=== PATIENT | female | born 1940 | race Caucasian/White ===

== ENCOUNTER 2020-05-09 14:55 | Inpatient (IN) | payer OTHER, BC ==
[~2020-05-09] VITALS: Ht 160 cm; Wt 43.3 kg
[2020-05-09] MEDS ORDERED: NORVASC5 MG PO (18:08)
[2020-05-09] MEDS ORDERED: CALCIUM500 MG PO (19:02)
[2020-05-09] MEDS ORDERED: OCCUVITE PO (19:02)
[2020-05-09] MEDS ORDERED: FAMOTIDINE 20 M20 MG PO (19:03)
[2020-05-09] MEDS ORDERED: DERMACINRX5000 UNI1 PO (19:03)
[2020-05-09] MEDS ORDERED: LIBRIUM PO (19:05)
[2020-05-09] MEDS ORDERED: METAMUCIL FIBE3.4 GM PO (19:05)
[2020-05-09] MEDS ORDERED: LYSINE500 MG PO (19:07)
[2020-05-10 07:20] VITALS: BP 134/67
[2020-05-10] MEDS ORDERED: AZELASTINE205.5 MCG/ NARES (13:14)
[2020-05-10] MEDS ORDERED: ESTROGEL50 GM (13:16)
[2020-05-10] MEDS ORDERED: SINUS RINSE RE1 EACH NS (13:17)
[2020-05-10] MEDS ORDERED: EYE DROP TEARS15 ML (13:25)
[2020-05-10] MEDS ORDERED: HYDROCORTISONE30 G9 RECTAL (13:27)
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
[2020-05-10 20:29] VITALS: BP 121/50
--- NOTE | 2020-05-11 05:16 | NUR ---
Assumed care of pt @ 1900. Pt calm et cooperative this shift. Took medications whole without difficulty. Ambulates the halls ad mili with steady gait. VSWNL. Health assessment with no abnormalities noted this shift. Denies SI/HI/AVH at present time. Socialized with peers in dayroom until HS. Pt repeatedly asked several staff members the same question regarding whether she needed to keep her current clothes on et if she would get new ones in the morning. Currently resting in bed with eyes closed. Will continue to monitor per unit protocol.
[2020-05-11 08:22] VITALS: BP 110/70
--- NOTE | 2020-05-11 17:13 | NUR ---
DID REPORT SI TO MD DURING AM ROUNDS BUT DURING 1;1 WITH THIS RADIATION PROTECTION TECHNICIAN STATES HAS SI WITH NO ACTIVE PLAN OR INTENT AND DOES STATE SHE WISHES SHE WOULD NOT WAKE UP BU WHEN ASKED IF SHE WOULD ACT ON THAT WHILE IN HOSPITAL STATES "THERE IS NO WAY TO DO IT HERE"WHEN APPROACHED A FEMALE PEER SITINF BY MARTA AND OFFERED PRILOSEC FOR STOMACH MARTA INSISTS THAT SHE HAD NOT RECEIVED HER AM DOSE ALTHOUGH IT HAD BEEN GIVEN A FEW MINUTES EARLIER. RATES ANXIETY 8/10 ON 1-10 SCALE. RATES DEPRESSION 5/10. ROOM CHECKED FOR CONTRABAND THIS SHIFT AND UTENSIL COUNT AFTER MEALS IN ADDITION TO MOUTH CHECK X 2 WITH MED PASS TO MONITOR FOR POTENTIAL STOCKPILING OF MEDS. WILL CONTINUE WITH Q 12 MINUTE CHECKS-ROOM ACROSS FROM NURSING STATION FOR CLOSER OBSERVATION.
[2020-05-11 19:29] VITALS: BP 119/67
--- NOTE | 2020-05-12 05:33 | NUR ---
Assumed care of pt @ 1900. Pt calm et cooperative this shift. Took medications whole without difficulty. Ambulates the halls with assistance of walker with steady gait. VSWNL. Health assessment with no abnormalities noted at present time. Denies HI/AVH at present time. Pt expressed a wish to but no current plan. Pt ambulating the halls with peer et discussing how she no longer wants to live. When asked her reasoning, pt states that she has nowhere to go when she leaves here et that she has made many bad choices in her life. Pt continues to present as very confused et asks the same questions many times. Pt expressed surprise when told that she has only been here for a couple of days. Socialized with peers in dayroom until HS. Currently resting in bed with eyes closed. Will continue to closely monitor per unit protocol.
[2020-05-12 08:09] VITALS: BP 103/70
[2020-05-12 08:41] VITALS: BP 103/78
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
[2020-05-12 11:57] LABS: CALCIUM 9.7 mg/dL (8.5-10.1); CREATININE 0.8 mg/dL (0.6-1.0); POTASSIUM 4.2 mmol/L (3.5-5.1)
[2020-05-12 12:05] LABS: ALBUMIN 3.3 g/dL (3.4-5.0); MAGNESIUM 2.2 mg/dL (1.8-2.4); TOTAL BILIRUBIN 0.4 mg/dL (0.2-1.0); TOTAL PROTEIN 6.7 g/dL (6.4-8.2)
--- NOTE | 2020-05-12 12:07 | NUR ---
PT SITTING IN DAYROOM AFTER MEETING WITH IMAGERY ANALYST VISITING WITH A FEMALE PEER-APPROACHED BY THIS RN TO PHOTOGRAPH LACERATIONS ON ARMS AND COMPLETE ASSESSMENT AT APPROX 1115 -RESPONDS TO QUESTIONS ASKED APPROPRIATLY-DENIES C/O PAIN/DISCOMFORT-APPROX 5 MINUTES LATER REPORTED BY DIRECTOR DAY CARE CENTER TO BE UNRESPONSIVE-UPON ASSESSMENT IS NOTED TO HAVE PULSE AND SHALLOW RESPIRATIONS,COLOR IS PALE-RESPONDS TO PAINFUL STIMULI-NO TO VERBAL STIMULI-EYES UNFOCUSED. LOWERED TO FLOOR AND DID OPEN EYES AND GRIMACE TO STERNAL RUB-RAPID RESPONSE CALLED. VS OBTAINED AND BLOOD SUGAR COMPLETED IS NOTED TO BE MILDLY DIAPHORETIC. BS 125-BP 125/93-PULSE 53. 02 SAT 93 PERCENT ON RA-O2 APPLIED VIA NC AT 2 LITERS AND SATS INCREASED TO 97 PERCENT. EKG SHOWS NSR-LABS DRAWN VIA RIGHT ANTICUBITALAND IV STARTED IN LEFT FOREARM. PT IS OPENING EYES TO VERBAL COMMANDS AT APPROX 1135-VS 127/60-P-58 R-12 AND O2 SAT 98 PERCENT AT 1140-LOADED ON BED AND TAKEN TO CT PER STAT ORDER-BROTHER CARLOS SORIANO CONTACTED AND INFORMED OF ABOVE-Eric SHARMA CONTACTED AND INFORMED OF ABOVE-REQUESTED DC TO GO TO CCU AFTER CT SCAN FOR FURTHER EVALUATION PER ORDER DR. DAVIDSON.
[2020-05-12 12:13] LABS: HEMATOCRIT 38.5 % (37.0-47.0); HEMOGLOBIN 12.7 gm/dL (12.0-15.0); MCH 31.4 pg (26.0-34.0); MCHC 32.9 g/dL (28.0-37.0); MCV 95.5 fL (80.0-100.0); RBC 4.03 mil/uL (4.20-5.00); RDW 13.1 % (10.5-14.5); WBC 5.9 thou/uL (4.0-11.0)
[2020-05-12 12:27] LABS: APTT 24.5 Seconds (24.5-32.8); PROTIME 9.7 Seconds (9.3-11.4)
== END 2020-05-12 12:00 | disposition home or self-care (01) | DRG 885 ==
LOC: SBH → EROBS 05-10 05:10 → SBH 05-10 07:35
PROVIDERS: Internal Medicine; Psychiatry & Neurology Neuromuscular Medicine; ADMIT Psychiatry & Neurology Psychiatry; ATTEND Psychiatry & Neurology Psychiatry
DX: F31.9 Bipolar disorder, unspecified (principal); E43 Unspecified severe protein-calorie malnutrition; R45.851 Suicidal ideations; Z68.1 Body mass index [BMI] 19.9 or less, adult; I10 Essential (primary) hypertension; Z77.22 Contact with and (suspected) exposure to environmental tobacco smoke (acute) (chronic); F03.90 Unspecified dementia, unspecified severity, without behavioral disturbance, psychotic disturbance, mood disturbance, and anxiety; M19.90 Unspecified osteoarthritis, unspecified site; G89.29 Other chronic pain; E11.9 Type 2 diabetes mellitus without complications; Z88.6 Allergy status to analgesic agent; Z88.1 Allergy status to other antibiotic agents; Z88.8 Allergy status to other drugs, medicaments and biological substances; Z28.21 Immunization not carried out because of patient refusal
CPT/HCPCS: 10880

== ENCOUNTER 2020-05-09 17:35 | Emergency (ER) | payer OTHER, BC ==
[~2020-05-09] VITALS: Ht 160 cm; Wt 45.4 kg
[2020-05-09] MEDS ORDERED: NORVASC5 MG PO (18:08)
[2020-05-09 18:35] LABS: AMP/METHAMP Negative (Negative); BARBITURATES Negative (Negative); BENZODIAZEPINES Negative (Negative); COCAINE Negative (Negative); METHADONE Negative (Negative); OPIATES Negative (Negative); PCP Negative (Negative)
[2020-05-09 18:42] LABS: ABSOLUTE NEUTROPHILS 5.4 thou/uL (1.4-8.2); BASOPHILS 0.5 % (0.0-2.0); EOSINOPHILS 0.4 % (0.0-3.0); HEMATOCRIT 42.9 % (37.0-47.0); HEMOGLOBIN 13.8 gm/dL (12.0-15.0); LYMPHOCYTES 15.1 % (24.0-44.0); MCH 30.9 pg (26.0-34.0); MCHC 32.2 g/dL (28.0-37.0); MCV 95.8 fL (80.0-100.0); MONOCYTES 6.6 % (1.0-8.0); PLATELET COUNT 255 thou/uL (150-400); POLYS 77.4 % (36.0-66.0); RBC 4.47 mil/uL (4.20-5.00); RDW 13.3 % (10.5-14.5)
[2020-05-09] MEDS ORDERED: OCCUVITE PO (19:02)
[2020-05-09] MEDS ORDERED: CALCIUM500 MG PO (19:02)
[2020-05-09] MEDS ORDERED: DERMACINRX5000 UNI1 PO (19:03)
[2020-05-09] MEDS ORDERED: FAMOTIDINE 20 M20 MG PO (19:03)
[2020-05-09] MEDS ORDERED: METAMUCIL FIBE3.4 GM PO (19:05)
[2020-05-09] MEDS ORDERED: LIBRIUM PO (19:05)
[2020-05-09] MEDS ORDERED: LYSINE500 MG PO (19:07)
[2020-05-09 20:24] LABS: ANION GAP 11 mmol/L (7-16); BUN 15 mg/dL (7-18); CALCIUM 9.6 mg/dL (8.5-10.1); CHLORIDE 102 mmol/L (98-107); CO2 29 mmol/L (21-32); CREATININE 0.9 mg/dL (0.6-1.0); GLUCOSE 111 mg/dL (74-106); POTASSIUM 4.3 mmol/L (3.5-5.1); SODIUM 142 mmol/L (136-145)
[2020-05-09 20:30] LABS: ALBUMIN 3.8 g/dL (3.4-5.0); DIRECT BILIRUBIN < 0.1 mg/dL (<0.1-0.2); SGOT 20 U/L (15-37); SGPT 26 U/L (30-65); TOTAL BILIRUBIN 0.5 mg/dL (0.2-1.0); TOTAL PROTEIN 7.6 g/dL (6.4-8.2)
[2020-05-09 20:53] LABS: SALICYLATE < 2.8 mg/dL (2.8-20.0)
[2020-05-10 07:12] VITALS: BP 131/73
[2020-05-10] MEDS ORDERED: AZELASTINE205.5 MCG/ NARES (13:14)
[2020-05-10] MEDS ORDERED: ESTROGEL50 GM (13:16)
[2020-05-10] MEDS ORDERED: SINUS RINSE RE1 EACH NS (13:17)
[2020-05-10] MEDS ORDERED: EYE DROP TEARS15 ML (13:25)
[2020-05-10] MEDS ORDERED: HYDROCORTISONE30 G9 RECTAL (13:27)
== END 2020-05-10 07:15 | disposition still patient (30) ==
LOC: ER 17:35
PROVIDERS: Nurse Practitioner
DX: R45.851 Suicidal ideations (principal); F41.9 Anxiety disorder, unspecified; F03.90 Unspecified dementia, unspecified severity, without behavioral disturbance, psychotic disturbance, mood disturbance, and anxiety; E11.9 Type 2 diabetes mellitus without complications; I10 Essential (primary) hypertension; K21.9 Gastro-esophageal reflux disease without esophagitis; M19.90 Unspecified osteoarthritis, unspecified site; Z20.822 Contact with and (suspected) exposure to COVID-19; Z79.899 Other long term (current) drug therapy; Z88.8 Allergy status to other drugs, medicaments and biological substances; Z88.1 Allergy status to other antibiotic agents; Z88.5 Allergy status to narcotic agent; Z98.890 Other specified postprocedural states

== ENCOUNTER 2020-05-12 12:08 | Inpatient (IN) | payer OTHER, BC ==
[~2020-05-12] VITALS: Ht 160 cm; Wt 51.6 kg
[2020-05-12 08:05] VITALS: BP 125/43
[2020-05-12 12:05] VITALS: BP 125/43
[~2020-05-12 12:08] MED LIST: AZELASTINE205.5 MCG/ NARES; CALCIUM500 MG PO; DERMACINRX5000 UNI1 PO; ESTROGEL50 GM; EYE DROP TEARS15 ML; FAMOTIDINE 20 M20 MG PO; HYDROCORTISONE30 G9 RECTAL; LIBRIUM PO; LYSINE500 MG PO; METAMUCIL FIBE3.4 GM PO; NORVASC5 MG PO; OCCUVITE PO; SINUS RINSE RE1 EACH NS
[2020-05-12 14:20] LABS: URINE BILIRUBIN NEGATIVE (Negative); URINE BLOOD TRACE (Negative); URINE CLARITY SL CLOUDY; URINE COLOR YELLOW; URINE GLUCOSE-RANDOM* NEGATIVE (Negative); URINE KETONES NEGATIVE (Negative); URINE NITRITE-REFLEX NEGATIVE (Negative); URINE PROTEIN (DIPSTICK) 1+ (Negative)
[2020-05-12 14:25] LABS: HEMOGLOBIN 12.7 gm/dL (12.0-15.0); MCH 31.1 pg (26.0-34.0); MCHC 32.5 g/dL (28.0-37.0); MCV 95.7 fL (80.0-100.0); RBC 4.08 mil/uL (4.20-5.00); RDW 12.9 % (10.5-14.5); WBC 9.7 thou/uL (4.0-11.0)
[2020-05-12 14:25] LABS: URINE LEUKOCYTES-REFLEX 2+ (Negative)
[2020-05-12 14:26] LABS: AMP/METHAMP Negative (Negative); BARBITURATES Negative (Negative); BENZODIAZEPINES Negative (Negative); COCAINE Negative (Negative); METHADONE Negative (Negative); OPIATES Negative (Negative); PCP Negative (Negative)
[2020-05-12 14:36] LABS: SQUAMOUS 4-10 Moderate /LPF (0-3)
[2020-05-12 14:37] LABS: BACTERIA-REFLEX >30 Many /HPF (None Seen); CASTS None Seen /LPF (None Seen); CRYSTALS None Seen /LPF (None Seen); RENAL EPITHELIAL CELLS 4-10 Moderate /LPF (None Seen); URINE RBC 0-2 Rare /HPF (0-2); URINE WBC-REFLEX >25 Many /HPF (0-5)
[2020-05-12 14:42] LABS: ALBUMIN 3.3 g/dL (3.4-5.0); CALCIUM 9.6 mg/dL (8.5-10.1); CREATININE 0.8 mg/dL (0.6-1.0); MAGNESIUM 2.3 mg/dL (1.8-2.4); POTASSIUM 4.2 mmol/L (3.5-5.1); TOTAL BILIRUBIN 0.4 mg/dL (0.2-1.0); TOTAL PROTEIN 6.5 g/dL (6.4-8.2)
[2020-05-12 14:43] LABS: CHOLESTEROL 228 mg/dL (<200); HDL CHOLESTEROL 82 mg/dL (>40); LDL CHOLESTEROL 130 mg/dL (<100); TC:HDL 2.8 Ratio (Not establshd); TRIGLYCERIDE 84 mg/dL (<150); VLDL 17 mg/dL (<40)
[2020-05-12 14:44] LABS: ALBUMIN 3.4 g/dL (3.4-5.0); TOTAL PROTEIN 6.7 g/dL (6.4-8.2)
[2020-05-12 16:05] VITALS: BP 124/64
[2020-05-12 17:00] VITALS: BP 121/55
[2020-05-12 20:43] VITALS: BP 124/72
[2020-05-13 03:25] LABS: HEMATOCRIT 35.3 % (37.0-47.0); HEMOGLOBIN 11.7 gm/dL (12.0-15.0); MCH 31.5 pg (26.0-34.0); MCHC 33.1 g/dL (28.0-37.0); MCV 95.3 fL (80.0-100.0); RBC 3.71 mil/uL (4.20-5.00); WBC 6.4 thou/uL (4.0-11.0)
[2020-05-13 03:28] LABS: CREATININE 0.8 mg/dL (0.6-1.0)
[2020-05-13 05:42] VITALS: BP 116/53
[2020-05-13 06:40] VITALS: BP 116/33
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
--- NOTE | 2020-05-13 07:46 | EKG ---
[address] [address] ELECTROCARDIOGRAM REPORT Name: MARTA WARREN Room #: 215- ADM IN M.R.#: [id number] Admission: 05/12/20 Attend Phys: Osorio Cavazos MD Discharge: Date of : 42 Report #: [id number] [facility] Test Date: 2020-05-12 Test Time: 13:37:54 Pat Name: MARTA WARREN Department: Room: 215 Gender: F Pigment Making Supervisor: FORD : 1940 Requested By: Osorio Cavazos Order Number: [id number] MD: Marlon Abarca Measurements Intervals Ladd Rate: 54 P: 75 CA: 130 QRS: 25 QRSD: 92 T: 48 QT: 438 QTc: 416 Interpretive Statements Sinus bradycardia Otherwise normal tracing No previous ECG available for comparison Electronically Signed On 05-13-2020 7:46:39 SECONDARY SOCIAL STUDIES TEACHER by Marlon Abarca [email or web address] <ELECTRONICALLY SIGNED> By: Marlon Abarca MD, [facility] 05/13/20 0746 1337 1337 Marlon Abarca MD, FACC /EPI
--- NOTE | 2020-05-13 10:49 | 2DMMODE ---
[facility] [place] [address] 2 D/M-MODE ECHOCARDIOGRAM Name: MARTA WARREN Room #: 215-P ADM IN M.R.#: [id number] Admission: 05/12/20 Attend Phys: Osorio Cavazos MD Discharge: Date of : 42 Report #: [id number] THIS REPORT FOR: cc: FAM - Family physician unknown FAM - Family physician unknown Alex Weinstein MD [facility] ~ ADDENDUM APPROVED REPORT Study performed: 05/13/2020 09:29:58 EXAM: Comprehensive 2D, Doppler, and color-flow Echocardiogram Patient Location: In-Patient Room #: 215 Status: routine BSA: 1.50 HR: 58 bpm BP: 116/53 mmHg Other Information Study Quality: Adequate Risk Factors: Cardiac Risk Factors: HTN, DM Indications Diabetes Hypertension/HDD 2D Dimensions IVSd: 9.69 (7-11mm) LVOT Diam: 20.21 (18-24mm) LVDd: 40.37 mm PWd: 7.51 (7-11mm) LVDs: 19.13 (25-40mm) Left Atrium: 29.42 (27-40mm) Aortic Root: 29.68 mm IVC: 1.00 mm Volumes Left Atrial Volume (Systole) Single Plane 4CH: 48.26 mL Single Plane 2CH: 66.18 mL LA ESV Index: 40.00 mL/m2 Aortic Valve AoV Peak Srinivasan.: 1.72 m/s [facility] [address] [place] [address] 2 D/M-MODE ECHOCARDIOGRAM Name: MARTA WARREN Room #: 215-P [facility] IN ..#: [id number] Admission: 05/12/20 Attend Phys: Osorio Cavazos, Discharge: Date of : 42 Report #: [id number] AO Peak Gr.: 11.78 mmHg LVOT Max P.58 mmHg LVOT Max V: 1.46 m/s KADE Vmax: 2.74 cm2 Mitral Valve E/A Ratio: 1.0 MV Decel. Time: 357.81 ms MV E Max Srinivasan.: 0.76 m/s MV A Srinivasan.: 0.74 m/s MV PHT: 103.76 ms IVRT: 78.43 ms Pulmonary Valve PV Peak Srinivasan.: 1.34 m/s PV Peak Gr.: 7.15 mmHg Pulmonary Vein P Vein S: 0.69 m/s P Vein A: 0.48 m/s P Vein D: 0.53 m/s P Vein A Dur.: 133.8 msec P Vein S/D Ratio: 1.30 Tricuspid Valve TR Peak Srinivasan.: 2.44 m/s TR Peak Gr.: 23.89 mmHg Left Ventricle The left ventricle is normal size. There is normal left ventricular wall thickness. The left ventricular systolic function is normal. The left ventricular ejection fraction is within the normal range. 5560% Right Ventricle The right ventricle is normal size. Atria The left atrium size is normal. Left atrium is at the upper limits of normal. The right atrium size is normal. Aortic Valve The aortic valve is normal in structure. No aortic regurgitation is present. There is no aortic valvular stenosis. Mitral Valve The mitral valve is normal in structure. Trace mitral regurgitation. No evidence of mitral valve stenosis. Tricuspid Valve [facility] [place] [address] 2 D/M-MODE ECHOCARDIOGRAM Name: MARTA WARREN Room #: 215-P [facility] IN M.R.#: [id number] Admission: 05/12/20 Attend Phys: Osorio Cavazos, Discharge: Date of : 42 Report #: [id number] The tricuspid valve is normal in structure. Trace to mild tricuspid regurgitation. Pulmonic Valve The pulmonary valve is normal in structure. There is no pulmonic valvular regurgitation. Great Vessels The aortic root is normal in size. IVC is normal in size and collapses >50% with inspiration. Pericardium There is no pericardial effusion. <Conclusion> Normal left ventricular size/wall thickness Ejection fraction 60% Normal right ventricular size/function Normal atrial size Color-flow Doppler study was performed of the aortic/mitral/tricuspid/pulmonary valve Normal aortic/mitral valve structure and function Trace tricuspid valve insufficiency No pericardial effusion <ELECTRONICALLY SIGNED> By: Alex Weinstein MD, FACC 05/13/20 1049 1049 1049 Alex Weinstein MD, FAC /INF
[2020-05-13 16:14] VITALS: BP 130/60
[2020-05-13 19:06] VITALS: BP 127/55
--- NOTE | 2020-05-13 20:04 | NUR ---
REPORT OBTAINED FROM CHART; NIGHT NURSE REFUSED REPORT AT THE BED SIDE; PT. ON BED RESTING WITH EYES CLOSED; EQUAL CHEST RISING; SR ON THE MONITOR; ONE TO ONE CARE; DURING AM ASSESSMENT PT. ALERT TO PERSON, PLACE AND SITUATION; NO C/O PAIN; DURING THE AFTERNOON PT. C/O BACK PAIN; REFUSED PAIN MEDICATION; PER DR. MALATHI ALTAMIRANO TO D/C ONTIVEROS; ONTIVEROS D/C AT 1400; PT. ABLE TO VOID; PER SITTER PT. EATING AT LEAST 60%; HAD ONE BM DURING THE DAY; EEG PERFORMED; NEURO PAGED; NO ANSWER BACK; ASSESSMENT CHARGED; FOLLOWING POC; PASSED ON REPORT;
--- NOTE | 2020-05-13 21:53 | NUR ---
Assumed pt care at 190. Pt is stable and laying in bed, resting, Assessment completed and documented. Denies pain, Sitter at bedside, Scheduled meds administered to pt. Tolerated PO intake. No acute events noted. Pt is transferred to [facility]. Continue to monitor
--- NOTE | 2020-05-15 12:29 | HC ---
[facility] [place] [address] CONSULTATION Name: MARTA WARREN Room #: 215-P [facility] IN M.R.#: [id number] Admission: 05/12/20 Attend Phys: Osorio Cavazos MD Discharge: 05/13/20 Date of : 42 Report #: [id number] THIS REPORT FOR: cc: LEENO - Family physician unknown FAM - Family physician unknown Rashawn Kennedy MD ~ DATE OF SERVICE: 05/12/2020 HISTORY OF PRESENT ILLNESS: This is a 79-year-old female patient who was evaluated by me for the possibility of stroke. I got an initial call from Dr. Cavazos, the hospitalist about the possibility of stroke in this patient. I talked to him and subsequently I had multiple conversations with him after seeing the patient. I talked to the nurse who was taking care of this patient at psychiatric floor, I talked to the nurses who responded to rapid response team, I talked to the nurses looking after this patient on telemetry. I called Joe Spencer whose name is in the chart as a medical durable power of environmental property assessor and I had several conversations with him since then. I talked to the radiologist, who read the patient's CT angiogram and perfusion and reviewed the films with him. The history I get from the psychiatric nurses that the patient was fine yesterday and she was fine today and then she suddenly became unresponsive. We lowered her to the floor and she will not respond. On my examination, first time that is what it was, but my last examination, she moves all 4 extremities when she wants to. She can follow simple commands. Her voice is soft, but she appeared to be paranoid. The person listed on is Joe mullins tells me that this patient has pretty significant deterioration of the memory in the last 1-2 years, it has progressively become worse. She is quite confused sometime. She had suicidal attempt and she had a lot of psychiatric issue where she becomes paranoid. She does not have any history of stroke and she has no history of seizure. REVIEW OF SYSTEMS: A 14-point review of system was carried out from Joe. She has a prior history of alcohol abuse, but has not done that for a long time. She does have a history of hypertension. She has pretty significant psychiatric issue and what appeared to be dementia now. This was a relevant 14-point review of system I can get. PAST MEDICAL HISTORY: Negative for any stroke. FAMILY HISTORY: Negative for early age stroke. SOCIAL HISTORY: She does not smoke now. [facility] [address] [place] [address] CONSULTATION Name: MARTA WARREN Room #: 215-P [facility] IN .R.#: [id number] Admission: 05/12/20 Attend Phys: Osorio Cavazos MD Discharge: 05/13/20 Date of : 42 Report #: [id number] PHYSICAL EXAMINATION: The patient's examination was pretty limited, first time she will just lay there catatonic and would not do anything. I will raise her hand, she will keep it raised and will not bring it down. On my last examination, she followed simple commands. When I asked her to raise her arm, she did. When I asked her to move her legs she did, but she will move only this much. She will not do it all the time, but she will do it intermittently. She will move her eyes in multiple directions when she wants to. On other occasion, she will not do that. It was a difficult case. Initially, I considered TPA. I talked to Joe about TPA. He said he wants to talk to the patient's sister and will call me back. I did not hear back from him, so I called him back. He says he cannot get hold of the sister. In the meantime, she started waking up. We got the CT angio report and that was normal. I again discussed with them that the stroke is not excluded, but I cannot definitely include the stroke either. We have a window of 3-hour or 4-1/2 hour in this patient to give her TPA if he want to. I discussed the indication, potential complication, and all the alternatives with him. After discussing all of it with him, it was decided not to give TPA to her in consultation with him. I told him that we can be wrong and she may still have a stroke, but on other hand, if we give her TPA she can bleed. He understood and his decision was not to give her TPA. The patient has woken up and is doing as described above and the workup is unremarkable and I have called for a stat MRI and we will do that test and until that shows any overriding finding we will manage her conservatively and the mainly her psychiatric problem. More than 70 minutes of time was spent taking care of this patient today and majority was spent counseling and coordinating on multiple calls as summarized above. Thank you very much for this referral. Dr. Jo will follow up this patient with you from tomorrow. <ELECTRONICALLY SIGNED> By: Rashawn Kennedy MD 05/15/20 1229 1412 1722 Rashawn Kennedy MD /nt
--- NOTE | 2020-05-15 12:30 | EEG ---
[facility] [place] [address] ELECTROENCEPHALOGRAM Name: MARTA WARREN Room #: 215-P [facility] IN M.R.#: [id number] Admission: 05/12/20 Attend Phys: Osorio Cavazos MD Discharge: 05/13/20 Date of : 42 Report #: [id number] THIS REPORT FOR: //name// DATE OF SERVICE: 05/13/2020 This patient's EEG was done by placing the electrode by standard 10-20 system of electrode placement. Both referential and sequential montages were used for recording. Background activity in this patient's EEG is about 9 Hz and 30 microvolt. The patient went to sleep that is associated with bilateral slowing and vertex sharp waves. Photic stimulation is unremarkable. Throughout the record, no active epileptiform activity was noticed. IMPRESSION: This patient's EEG is intermixed with some theta range slowing on both sides. That is a nonspecific abnormality, which can occur with the drowsiness, effect of psychotropic medication, dementia, etc. Clinical correlation is recommended. Thank you very much for this referral. <ELECTRONICALLY SIGNED> By: Rashawn Kennedy MD 05/15/20 1230 41 47 Rashawn Kennedy MD /nt
== END 2020-05-13 21:45 | DRG 884 ==
LOC: 2N 12:08
PROVIDERS: ADMIT Internal Medicine; ATTEND Internal Medicine
DX: F03.90 Unspecified dementia, unspecified severity, without behavioral disturbance, psychotic disturbance, mood disturbance, and anxiety (principal); G93.40 Encephalopathy, unspecified; R45.851 Suicidal ideations; F41.9 Anxiety disorder, unspecified; I10 Essential (primary) hypertension; E11.9 Type 2 diabetes mellitus without complications; K21.9 Gastro-esophageal reflux disease without esophagitis; G89.29 Other chronic pain; M19.90 Unspecified osteoarthritis, unspecified site; R41.0 Disorientation, unspecified; F31.9 Bipolar disorder, unspecified; Z88.8 Allergy status to other drugs, medicaments and biological substances; Z88.1 Allergy status to other antibiotic agents
CPT/HCPCS: 10081

== ENCOUNTER 2020-05-13 21:35 | Inpatient (IN) | payer OTHER, BC ==
[~2020-05-13] VITALS: Ht 160 cm; Wt 48.2 kg
--- NOTE | 2020-05-14 05:46 | NUR ---
Pt admitted to unit from CCU at 2148 via w/c. Pt had no personal belongings with her. Pt presents with flat affect and is drowsy. Pt calm and cooperative. Pt had HS medications prior to coming to unit. Pt had satellite project site monitor on person and saline lock for left forearm which were removed and dc'd at time of admission. Pt assisted with being changed into a clean gown. Pt had on no undergarment and was given a brief. Pt VS WNL (119/63; 57; 16; 97.1; 96% on room air). Pt denies pain but does later state that her chest is sore. Pt has a quiet demeanor. Pt goes by middle name, Ashley, not Sidra. Dr. Mcnamara called previous to pt returning and gave orders to reinstated previous orders. Pt is on 12 min checks for safety. Will continue to monitor for any changes. TARA Oneil, saw pt prior to coming to unit. Pt has slept in bed since coming to unit. No s/s of acute distress noted/observed.
[2020-05-14 06:25] VITALS: BP 119/63
[2020-05-14 10:20] VITALS: BP 107/62
--- NOTE | 2020-05-14 12:09 | NUR ---
LINCOLN reviewed pt's chart and saw she scored a 21/30 on a SLUMS completed within the last week. LINCOLN contacted Joe Spencer at [phone] and identified herself as pt's Manager Workers Compensation. Joe told LINCOLN that she goes by the name Ashley. He identified as a friend Shaila as a person to leave messages if staff is unable to reach him at [phone]. SW team will continue to follow pt during her stay on this unit.
--- NOTE | 2020-05-14 15:55 | NUR ---
Recieved phone call from pts roommate at nursing station phone. He was asked to provide privacy code, and did not provide correct digits for current or previous (before medical d/c) code. When informed nursing could not provide pt update to him without correct code, he became frustrated stating, "now you people haven't helped me a damn since she's been sitting there! I will just come up there!" Heavy Mobile Equipment Repairer explained current visiting policy as well as an explanation of patients right to confidentiallity. Caller states, "I've been on her will since 2012 I have the right to an update." Heavy Mobile Equipment Repairer will inform pt she recieved a phone call from her roommate when she wakes from nap.
[2020-05-14 19:20] VITALS: BP 116/62
--- NOTE | 2020-05-14 20:46 | NUR ---
ASSumed pt care at 0700. pt was in her room resting. pt came out for meals. pt was alert and oriented x2. pt assessment are completed VSS. pt took medication whole with apple sauce. pt refused breakfast and lunch, but ate dinner. during assessment pt stated that she has no reason to live anymore. she stated she has losted her money, she left every thing she had. pt stated son wants nothing to do with her. pt blamed her self for her 's . pt stated if she had not taking him to rehab, he would have still been alive. she stated she had no bank account, pt continued by saying her life is screwed, and pt stated she wants to . she asked casualty underwriter to assist her get on hospice so that she could . Correctional Supervisor Lieutenant informed DR Ramirez of pt situation. DR RAMIREZ AND DR Cavazos spoke to pt. pT ATE DINNER. NO PRNS given. casualty underwriter and manager play kept a close eye on pt. will continue to monitor pt.
--- NOTE | 2020-05-15 03:22 | NUR ---
05-14-2020 CARE TRANSFERRD 1914. PT AAOX3, VSS, RR EVEN AND NONLABORED ON RA, PT DENIES ANY PAIN. PT REPORTS SHE IS READY TO , BUT HAS NO PLAN OF SI/SH/HI. PT REPORTS SHE WOULD LIKE TO GO ON HOSPICE. ZERO S/S OF ACUTE DISTRESS NOTED, PT WILL CONTINUE TO BE MONITOR PER [facility] PROTOCOL.
[2020-05-15 08:17] VITALS: BP 107/59
--- NOTE | 2020-05-15 13:05 | NUR ---
ASSUMED CARE AT 0700 THIS MORNING. PT. UP AND ON THE UNIT. SHE WAS PLEASANT AND COOPERATIVE WITH ASSESSMENT AND MEDICATIONS. SHE DID NOT REQUIRE INSULIN AT BREAKFAST, BUT DID REQUIRE 3 UNITS AT LUNCH. SHE HAS ATTENDED GROUPS. SHE HAS BEEN ON THE UNIT MUCH OF THE SHIFT. STAFF DISCUSSED WITH HER THE HAVE A ROOM LOCK OUT DUE TO SI. ROOM WAS LOCKED. SHE ATTENDED GROUPS THEREAFTER.
[2020-05-15 13:49] VITALS: BP 141/68
[2020-05-15 19:36] VITALS: BP 106/76
[2020-05-16] VITALS (14 sets, daily range): BP systolic 57–123; BP diastolic 27–63
--- NOTE | 2020-05-16 03:13 | NUR ---
Assumed care of patient this pm shift. Patient depressed, calm and cooperative. Patient states that she feels like she would be better off if she were no longer here. Patient feels as though her body systems will continue to degenerate and that she will eventually need more and more help. She misses her and is still grieving the loss. Patient takes medications whole with thin fluids. Ambulates without assistance and is not considered a falls risk. Ambulates with a walker with a steady gait. Patient also stated that many medications may work for her and then over time lose the desired affect. Affect depressed. Assessment shows no signs of acute distress. We will continue to monitor per hospital policy.
[2020-05-16 05:36] LABS: HEMATOCRIT 33.4 % (37.0-47.0); HEMOGLOBIN 10.9 gm/dL (12.0-15.0); MCH 31.3 pg (26.0-34.0); MCHC 32.7 g/dL (28.0-37.0); MCV 95.7 fL (80.0-100.0); RBC 3.48 mil/uL (4.20-5.00)
[2020-05-16 06:20] LABS: ALBUMIN 2.9 g/dL (3.4-5.0); CALCIUM 9.2 mg/dL (8.5-10.1); CREATININE 0.9 mg/dL (0.6-1.0); POTASSIUM 4.2 mmol/L (3.5-5.1); TOTAL BILIRUBIN 0.3 mg/dL (0.2-1.0); TOTAL PROTEIN 5.9 g/dL (6.4-8.2)
--- NOTE | 2020-05-16 10:33 | NUR ---
IV placed to right AC. NS 0.9% infusing at 500cc/hr x1.
[2020-05-16 10:41] LABS: CALCIUM 9.2 mg/dL (8.5-10.1); CREATININE 0.8 mg/dL (0.6-1.0); POTASSIUM 4.4 mmol/L (3.5-5.1)
--- NOTE | 2020-05-16 11:26 | NUR ---
BUILD ENGINEER initiated due to low HR & decrease in BP-see flowsheet
--- NOTE | 2020-05-16 13:52 | EKG ---
[place] [address] [facility] [place] [address] ELECTROCARDIOGRAM REPORT Name: MARTA WARREN Room #: [facility] ADM IN M.R.#: [id number] Admission: 05/13/20 Attend Phys: Yenifer Mcnamara MD Discharge: Date of : 42 Report #: [id number] [facility] Test Date: 2020-05-16 Test Time: 10:31:45 Pat Name: MARTA WARREN Department: Room: [facility] Gender: F Digital Service Engineer: LORI : 1940 Requested By: Yenifer Mcnamara Order Number: [id number] : Alex Weinstein Measurements Intervals [place] Rate: 52 P: 31 NE: 121 QRS: 7 QRSD: 91 T: 41 QT: 433 QTc: 403 Interpretive Statements Sinus rhythm Abnormal R-wave progression, late transition Probable left ventricular hypertrophy Compared to ECG 05/12/2020 13:37:54 ST (T wave) deviation now present Sinus bradycardia no longer present Electronically Signed On 05-16-2020 13:51:54 COMPLEX MANAGER by Alex Weinstein [email or web address] <ELECTRONICALLY SIGNED> By: Alex Weinstein MD, FAC 05/16/20 1351 1031 1031 Alex Weinstein MD, [facility] /EPI
--- NOTE | 2020-05-16 14:38 | NUR ---
Pt. sitting at table eating breakfast, calm and compliant with meds, took whole with H20. No s/o distress. 1000 Called to dining room where pt had fallen from couch to floor. Color very pale with shallow resp and weak pulsed, +4 capillary refill. Pt unresponsive to noxious stimuli. Pupils +2 and reactive. Pt. yawned. Lifted to [facility]. Initial BP 57/27 with O2 sat of 100% and HR 40s BP up to 101/53 and HR [address] El luz stat, order received for NS bolus and CT of head. Dr. Mcnamara on unit assisting with evaluation. Rapid response team called. BP remained 100-117/50s with HR 50s, documented per VS. Color improved and resp slightly deeper. No s/o resp distress. Pt. remains unresponsive to stimuli, no spontaneous movement. Pupils equal and briskly reactive. 1cm bump to L center forehead. [address] of head and abdomen. Pt. able to bear some wt during transfer but remains unresponsive. NS infusing at 500 ml/hr per L ac per pump without diff, site soft and flat. EEG being done in pt room. 1200 Pt. moved out to dining room for close observation. Crawler Tractor Operator equal and weak. Wiggling fingers and toes on command. BG 81. States she doesn't feel good but will try lunch. Assisted with transfer to chair from [facility] and set up tray. Ate lunch independently without s/o distress.
[2020-05-16 15:24] LABS: HEMATOCRIT 34.3 % (37.0-47.0); HEMOGLOBIN 11.2 gm/dL (12.0-15.0); MCH 31.3 pg (26.0-34.0); MCHC 32.5 g/dL (28.0-37.0); MCV 96.4 fL (80.0-100.0); RBC 3.56 mil/uL (4.20-5.00); WBC 6.7 thou/uL (4.0-11.0)
--- NOTE | 2020-05-17 05:12 | NUR ---
05-16-20 CARE TRANSFERRED 1899 OBSERVED PT SITTING IN GERICHAIR IN DINING ROOM. PT AAOX2, VSS, RR EVEN AND NONLABORED ON RA. PT LEFT AC S/L IV, CLEAN, DRY AND INTACT. PT BLD GLUCOSE 99, HCP ON UNIT AND DIRECTION RECEIVED. PT PRESENTS CONFUSED AND REPORTS "I TRUSTED THE WRONG PEOPLE, THEY WANT TO STEAL THINGS OUT OF MY HOUSE." PT FURTHER CONTINUE WITH FLIGHT OF IDEA'S ABOUT A TRUST FUND, AND EVERYTHING IS GONE. PT CONSUMED 1 BX OF OJ, 1 CUP OF APPLESAUCE, 2 PK LAKESHIA CRACKERS, AND FORZEN SERBERT. PT BLD GLUCOSE RECHECKED 136. DURING MEDICATION ADMIN PT "WHY DO I HAVE TO TAKE SO MANY MEDICATION" PT REFUSED. LATER PT STATED SHE NEEDS TO GO TO THE BATHROOM NOW, MOVER AND THIS ASSEMBLY LINE DRIVER ASSISTED AND PT STATED "THOUGHT I SHIT MYSELF" NO BM. LATER PT BLD GLUCOSE RECHECK AND MALFUNCTION TEST OF 24, RETAKEN AND 71, PT WAS TALKING AND SKIN W/D TWO GLUCOSE TABS AND WATER CONSUMED. THEN PT STATED SHE WAS HUNGRY, A SNACK PACK BROUGHT AND PT REPORTED SHE CAN ONLY EAT WHEAT BREAD, BUT ATE CHIPS, PT B/P 98/48, P 60, RR 16 EVEN AND NONLABORED ON RA. PT REPORTED SHE FEELS SAD. PT CONTINUES TO DENIES PAIN AND SI/HI. RECEIVED REPORT FROM MOVER THAT PT REPORTED THIS MORNING HER URINE WAS BURNING, NOTED YELLOW URINE IN TOLLIET. ZERO S/S OF ACUTE DISTRESS NOTED, PT WILL CONTINUE TO BE MONITOR PER SB.
[2020-05-17 07:09] VITALS: BP 113/62
[2020-05-17 07:12] VITALS: BP 110/67
[2020-05-17 07:16] VITALS: BP 116/71
[2020-05-17 08:54] VITALS: BP 113/62
--- NOTE | 2020-05-17 12:09 | NUR ---
Alert and orientated to name and place. States she feels weak this AM and is having pain in lower back and left knee. Was bearing wt on L leg during orthostatic BP this AM. Did not give number for amt of pain. Dr. Enciso notified of pain, awaiting orders. Did ambulate without diff from room to dining room without s/o distress with walker and without mention of pain. Slept for several hours after group. Breath sounds clear. Reg HR auscultated. Color pale pink with brisk capillary refill and palpable peripheral pulses. +1 nonpitting edema in feet. Voided yellow urine per toilet. Active bowel sounds over soft, flat abdomen. Currently eating lunch independently without s/o distress.
[2020-05-17 19:19] VITALS: BP 118/64
[2020-05-17 21:00] VITALS: BP 118/64
[2020-05-18 00:06] LABS: GLYCOHEMOGLOBIN (HGB A1C) 5.7 % (4.8-5.6)
--- NOTE | 2020-05-18 03:08 | NUR ---
PATIENT AWOKE CALLING OUT FOR NURSE AND CRYING A FEW MINUTES BEFORE 0300. WENT IN AND SHE WAS SAYING SHE DIDN'T WANT TO LIVE ANYMORE AND THAT SHE IS TIRED OF FEELING LIKE SHE DOES. I ASKED HER HOW SHE WAS FEELING AND SHE STATED THAT SHE IS ITCHING ALL OVER. SHE STATED THAT HER ARMS, BACK, HEAD AND TORSO WERE ALL ITCHING. I LOOKED AT SKIN AND THERE ARE NO RASHES OR IRRITATIONS NOTED. CALLED AND SPOKE WITH DARWIN MATSON AND HE ORDERED BENADRYL 25MG PO Q 6HR PRN ITCHING. BENADRYL 25MG PO GIVEN AND PATIENT STATED SHE JUST WANTS TO GO BACK TO SLEEP. PT LAID DOWN. PATIENT IS NOW IN TALKING TO HERSELF AND CRYING. GOING TO GO SPEAK WITH HER. BED IN LOW POSITION AND BED ALARM IS ON.
--- NOTE | 2020-05-18 03:53 | NUR ---
CHECKED PATIENT'S GLUCOSE AT 0320. HER GLUCOSE AT HS WAS 135. HER GLUCOSE AT 0320 WAS DOWN TO 90. SHE REFUSED ANY JUICES BUT SAID SHE WOULD EAT APPLESAUCE. ALL WE HAD WAS NO ADDED SUGAR APPLESAUCE SO ADDED 1.5 PACKETS OF SUGAR AND MIXED IT IN. PATIENT ATE THIS AND THEN REQUESTED EDUARD KWOK SHE ATE THIS ALSO. ASSISTED PATIENT TO THE BATHROOM AND SHE VOIDED AND THEN BRUSHED HER TEETH AND USED MOUTH WASH AND THEN APPLIED LOTION TO ARMS. PATIENT CALMED AFTER EATING AND USING BATHROOM. WE VISITED FOR AWHILE AND SHE WAS ASSISTED BACK TO BED. WE USED WALKER IN TRANSFERRING HER AND SHE WAS STABLE ON HER FEET WITH STANDBY ASSIST USING WALKER. PATIENT HAS SOME RED SPOTS APPEARING ON NECK BUT HER ITCHING HAS DECREASED. APPLIED COOL RAGS TO AREAS TO HELP RELIEVE SOME ITCHING. BED IN LOW POSITION AND BED ALARM IS ON. CONTINUING TO MONITOR.
[2020-05-18 08:30] VITALS: BP 109/59
[2020-05-18 08:34] VITALS: BP 109/59
--- NOTE | 2020-05-18 08:59 | NUR ---
PT FINISHED BREAKFAST AND TOOK MEDS WHOLE WITHOUT ANY ISSUES. PT SITTING ON COUCH AT THIS TIME GETTING READY FOR GROUP. PT TALKING TO DARWIN MCNEIL AND SHE HAS NOTHING TO LIVE FOR. PT USES WALKER TO AMBULATE. PT LUNGS CLEAR.
--- NOTE | 2020-05-18 18:05 | NUR ---
SW met with patient to discuss the day and see if the patient has any needs. Patient reported she did not like the food. Patient reported the portions were much larger than she is use to. patient reported she would like to order from the menu. Patient was giving a menu by nursing staff. Nursing staff will help patient make her selections. Patient did not report and SI/HI. SW will follow up with patient tomorrow.
[2020-05-18 19:20] VITALS: BP 103/60
--- NOTE | 2020-05-19 05:34 | NUR ---
Assumed pt's care beginning of this pm shift. ALert and oriented. forgetful. Pt was in the dayroom at time of assessment. Did voice anxiety and depression. Pt seemed upset about her life. No being able to do and remember things like she used to. Pt took meds whole. Opted to take only 2 stool softers. Declined psyllium, voicing she did not want to have diarrhea. Pt slept well this shift. Did call out to use the bathroom as needed. Pt continues to sleep at this time. Will continue to monitor.
[2020-05-19 08:07] VITALS: BP 124/75
[2020-05-19 08:16] VITALS: BP 124/75
--- NOTE | 2020-05-19 08:17 | NUR ---
PT VERY TALKATIVE THIS AM. PT UP WITH WALKER WITH STEADY GAIT. PT TAKES MEDS WHOLE. PT WANTING PEPCID BID DUE TO GERD. PT LUNGS CLEAR. PT VERY CHEERY THIS AM. PT WORRIED ABOUT MEDICATION WHEN SHE DISCHARGES. SEEMS ANXIOUS THIS AM, FAST PACED SPEECH.
--- NOTE | 2020-05-19 09:30 | NUR ---
PT WORRIED ABOUT WHERE HER INSURANCE CARDS ARE IF THEY ARE HERE OR NOT. PT WORRIED ABOUT THE BILL AND WHO IS GOING TO PAY.
--- NOTE | 2020-05-19 10:43 | NUR ---
PT TALKING TO SON ON THE PHONE. SHE SAID SHE IS DWENDLEING DOWN. PT WEIGHED THIS AM ON STANDING SCALE AND IS 102.8 PDS. PT STATED WHEN SHE GOT HERE SHE WAS 99 PDS.
--- NOTE | 2020-05-19 14:54 | NUR ---
PT HAD MAGIC CUP AT LUNCH AND DIDN'T WANT IT DUE TO THE TASTE, SHE SAID IT TASTED GRITTY. PT HAD REG ICE CREAM INSTEAD.
--- NOTE | 2020-05-19 16:06 | NUR ---
PT WORRIED ABOUT HER PHARMACY SHE SAID SHE WENT TO [facility] FOR HER MEDS THEY ARE OUT OF NETWORK. PT JUST WORRIED SHE WON'T BE ABLE TO GET HER MEDS.
[2020-05-19 19:42] VITALS: BP 133/73
--- NOTE | 2020-05-20 04:47 | NUR ---
Assumed care for pt at 1900. Pt affect was upbeat and bright. Dress is neat. Pt calm and cooperative with nursing assessment and compliant with taking HS medications. Pt stool softeners and laxitives held this HS as did not need. Pt last reported BM was on 05/19/20. Pt reports appetite has been fair to good. Pt has rested in bed with eyes closed during night and has appeared to be sleeping. Pt reported during assessment continued depression and does state she has thoughts of self harm. Pt contracts for safety in hospital setting. Pt sister called earlier in shift for update regarding questions about cardiology consult and possible pacemaker placement. Pt is on 12 min checks for safety. Will continue to monitor for any changes in mood/behavior and for safety per unit/hospital protocol. Pt is ambulatory w/ walker and a high fall risk. High fall risk protocol is implemented and in place.
[2020-05-20 09:39] VITALS: BP 116/64
--- NOTE | 2020-05-20 13:37 | NUR ---
RT Progress Note- Sidra has shown a moderate level of participation while admitted to [facility]. She has had some medical conerns that have affected her participation. When present in group, Sidra often takes on discussion and requires redirection before others can chime in. She speaks in negative/hopeless/helpless tones. BALLING HEAD TENDER will encourage continued participation.
--- NOTE | 2020-05-20 14:19 | NUR ---
PER SW PT HAD TO BE REMOVED FROM GROUP D/T DISRUPTIVE BEHAVIOR-WAS MAKING A LOUDING HUMMING NOISE REFUSED TO STOPPED WHEN ASKED TO-ESCORTED PYSICALLY OUT OF GROUP BY SW-IMMEDIATLY BEGIN TO BANG BACK OF HER HEAD
--- NOTE | 2020-05-20 14:25 | NUR ---
Pt attended SW group and initially wanted to talk about self and her problems. SW interrupted pt a few times to allow other pts to speak. During meditation pt initially stared at the wall and then began to chant quietly. Her voice began to increase and she rocked back and for to the extent of interrupted another peer. SW walked pt out of group and asked her about her feelings and how she was doing. Pt said she was not well. SW asked what could help and pt said "I want to lay down." SW reminded pt that she is on a room lockout and directed her to the community room. SW was approached by RT therapist who said shortly after SW escorted pt out of group, pt was found hitting her head against the wall until nursing stopped her. She then had an issue getting into a ynu chair for safety. SW team will continue to follow pt during her stay on this unit.
--- NOTE | 2020-05-20 16:01 | NUR ---
INTRUSIVE WITH STAFF AND PEERS-WHEELING WC UP TO THEM AND GRABBING THINGS OFF OF THEIR TRAYS OR PERSON-PULLING ON THEIR ARMS,LEGS,CHAIRS ETC IN ATTEMPT TO PROPEL SELF-WHEN ATTEMPTS ARE MADE TO REDIRECT OT REORIENT BECOMES LOUD AND BEGINS TO YELL OBSCENITIES. ATTEMPTED TO GIVE PO PRN MISXED WITH INCCREAM BUT DID APPEARD TO SPIT OUT MAJORITY OF MEDICATION ONTO FLOOR STATING "GODDAMM YOU I TOLD YOU I DIDN'T WANT IT"
--- NOTE | 2020-05-20 17:08 | NUR ---
CONTINUED FROM ABOVE..STAFF ASSISTED INTO GERICHAIR-BACK OF HEAD ASSESSED FOR AY S/S OF INJURY NO REDNESS,BRUISING ETC NOTED. DENIES VISUAL DIFFIDULTY.DOUBLE VISION ETC STATING "I WASN'T BANGING MY HEAD I JUST BARLEY TAPPED IT" VERIFIED BY OTHERS IN HALLWAY HAD TAPPED HEAD LIGHTLY ONCE POSSIBLY TWICE PRIOR TO STAFF INTERVENING. DR RAMIREZ NOTIFIED AND MOUSTAPHA YANEZ ORDER RECEIVED-SITTING QUIETLY IN DAYROOM WITH CONSTANT SUPERVISION AT THIS TIME-STATES TO NURSE"I HAVE NOTHING-EVERYTHING IS BAD-I HAVE NOTHING AND NOONE STATES SHE HAS NO MEMORY OF SPEAKING WITH ROOMMMATE ON PHONE EARLIER TODAY"
[2020-05-20 19:57] VITALS: BP 109/66
--- NOTE | 2020-05-21 05:11 | NUR ---
05-20-20 CARE TRANSFERRED 1900 OBSERVED PT SITTING IN GORDY CHAIR IN DAY ROOM. PT AAOX2, VSS, RR EVEN AND NONLABORED ON RA. PT DENIES ANY PAIN AND SI/HI. PT HAS BEEN CLAM AND COOPERATIVE DURING NURSING ASSESSMENT. LATER PT REPORTED CONCERNS ABOUT HER HOUSE AND IF BILLS WERE BEING PAID. PT WAS REASSURED AND PT DENIED FEELING ANXIOUS AT THIS TIME. PT BED WAS ADJUSTED FOR COMFORT, ZERO S/S OF ACUTE DISTRESS NOTED, PT WILL CONTINUE TO BE MONITOR PER [facility].
[2020-05-21 08:40] VITALS: BP 110/66
--- NOTE | 2020-05-21 13:27 | NUR ---
Assumed pt care at 0700.Pt was in her room resting. pt was alert and oriented 2x. Assessment completed and VSS. pt DENIES PAIN. pT TOOK medication whole without difficulty, she questioned every medication, Pt stated I don't know why am taking this medication when the don't work. Pt told ad copy writer that she was no longer taking medication. pt denies SI/HI. pt told ad copy writer she is worried about where she will live and were she is going after she leaves the hospital. PT was reassured. pt participated in groups. pt ambulate with a walker.Will continue to monitor.
[2020-05-21 19:22] VITALS: BP 114/68
--- NOTE | 2020-05-22 05:50 | NUR ---
05-21-20 CARE TRANSFERRED 1900 OBSERVED PT SITTING IN DAY ROOM WATCHING TV. DURING NURSING ASSESSMENT PT PRESENTS PLESANT, CALM AND COOPERATIVE, PT AAOX4, VSS, RR EVEN NONLABORED RA, PT DENIES ANY PAIN AND SI/HI. DURING MEDICATION ADMIN PT HAD NO DIFFICULTIS, AND WANTED TO TALK DURING THIS COMMUNICATION NOTED, PT HAD PARANOID IDEAS ABOUT HER FRIEND SILVIA AND CONCERNS/PEROANOID ABOUT POSSIBLE BEING IN TROUBLE OVER [place] CLEARANCE. PT WAS CALM BUT HYPERVERBAL. ZERO S/S OF ACUTE DISTRESS NOTED, PT WILL CONTINUE TO BE MONITOR PER [facility] PROTOCOL.
[2020-05-22 06:02] LABS: ALBUMIN 3.2 g/dL (3.4-5.0); CALCIUM 8.7 mg/dL (8.5-10.1); CREATININE 0.8 mg/dL (0.6-1.0); POTASSIUM 4.1 mmol/L (3.5-5.1); TOTAL BILIRUBIN 0.3 mg/dL (0.2-1.0); TOTAL PROTEIN 6.3 g/dL (6.4-8.2)
[2020-05-22 10:25] VITALS: BP 99/56
--- NOTE | 2020-05-22 10:59 | NUR ---
Assumed pt care at 0700. Pt was sleeping but arousable in her room. Assessment completed, VSS. Pt was alert and oriented x2. Pt denies pain. Pt ambulates with a w/c. Pt took medication whole without difficulties.
--- NOTE | 2020-05-22 11:55 | NUR ---
LINCOLN received a msg from staff that Vamsi, pt's roommate, called and would like a call back. LINCOLN contacted Vamsi at [phone]. He wanted to discuss pt getting a pace maker. LINCOLN explained she has nothing to do with that, and that staff cannot have these discussions with him as he is not pt's DPOA. Vamsi says he has a document stating that he is. LINCOLN explained that if she gets that document, and it is dated after the document the hospital currently has, then it may be accepted. He said he will fax the document. SW team will continue to follow pt during her stay on this unit.
--- NOTE | 2020-05-22 12:49 | NUR ---
At approximately 1000. REcreational therapist reported concerns to me regarding pt. video game script writer Assessed pt and took Vitals signs BP 102/63, O2 99% P 63 Tem 98.2, Res 18. pt was repositioned from a regular chair to Elizabeth chair that was more comfortable. Pt expressed that she wants to go home and kill herself, she had nothing to live for, pt stated she was worried Jason her roommate was taking everything she had away from her. Pt concerns were reported to the Dr Ramirez and case loader operator. At approximately 1215 video game script writer was assessing pt and noted pt would not respond to her name. pt radial pulse was assessed,pt had a pulse and was breathing, pt was repositioned to comfortable postion. pt blinked her eyes a couple of times, but would not respond to her name. Nurse Form Worker was called to get a second assessment on pt. Nurse Manger arrived the unit, asked patient to talk about pt situation. Vital signs were taking. BP 119/71, O2 93% Pulse 69, Tem 98.4, Resp 16. pt situation was reported to Dr RAMIREZ during rounds Via tablet. reported to Dr RAMIREZ via during rounds. will will continue to Monitor pt.
--- NOTE | 2020-05-22 12:51 | NUR ---
This nurse was asked to assess patient due to change in cognition. Patient laying back in yun chair upon arrival to unit. Patient staring at the ceiling. Patient head was moved to look toward this nurse. Patient moved her eyes to avoid making eye contact with this nurse. VS obtained and WNL. Pupils equal and reactive to light. Upper extremities were held up by this nurse. Patient was able to hold arms up and slowly lower them back to her sides. This nurse talked to patient regarding depression and anxiety and importance of talking about her emotions rather than "shutting down". Patient eyes became reddened and tears welled up in her eyes. Dr. Mcnamara assessed patient via telemedicine. Tablet was placed in front of patient so Dr. Mcnamara could see her. Patient moved her eyes so she did not have to look at the tablet. Patient resting in yun chair at this time.
[2020-05-22 19:33] VITALS: BP 127/78
[2020-05-22 23:21] VITALS: BP 127/78
--- NOTE | 2020-05-23 03:53 | NUR ---
Assumed care of patient this pm shift. Patient in mileu during assessment. Patient on room lock out. Takes medications whole with thin fluids. Has spoken about dying. Denies hi. Ambulates with a walker, steady gait. Alert and oriented x3. Assessment shows no signs of acute distress. We will continue to monitor per hospital policy.
--- NOTE | 2020-05-23 05:07 | NUR ---
Falls precautions in place.
[2020-05-23 05:55] LABS: CALCIUM 8.6 mg/dL (8.5-10.1); CREATININE 0.8 mg/dL (0.6-1.0); POTASSIUM 4.5 mmol/L (3.5-5.1)
[2020-05-23 09:33] VITALS: BP 123/73
--- NOTE | 2020-05-23 17:58 | NUR ---
Assumed pt care at 0700. pt oriented to self and place. Assessment completed, VSS. Pt took medication whole without difficulties. pt was paranoid with her medications.At this time there is no c/o pain. Patient ambulates with walker, pt has a steady gait. Pt talked about jumping off the bridge at noon. PT CONCERNS WERE REPORTED TO THE Dr MCNAMARA. DR Mcnamara saw pt. pt refused to speak to speak to staff after lunch. pt was redirected and reassured. pt denies HI. There were no sign of acute distress during assessment. pt was given PRN mag hydrox/AI FOR INDIGESTION. will continue to monitor pt.
[2020-05-23 19:07] VITALS: BP 97/65
--- NOTE | 2020-05-24 02:18 | NUR ---
ASSESMENT: PT REMAIN ALERT AND ORIENT TIMES THREE. UP IN THE DAY AREA AT THE BEGINNING OF THE SHIFT, SITTING ALONE BY THE WALL. REFUSED PSYLLIUM AND SENNA TABS; STATE THEY HAVE HER HAVING LOOSE STOOLS. FOLLOWED COMMANDS APPROPRIATELY, DID NOT ATTEMPT TO FAKE "". UP WITH STEADY GAIT AND WALKER, SBA TO BR. VSS, AFEBRILE. WILL CONTINUE TO MONITOR.
[2020-05-24 08:35] VITALS: BP 108/67
[2020-05-24 11:07] VITALS: BP 103/87
--- NOTE | 2020-05-24 12:29 | NUR ---
1220 RESUMMED CARE FROM OVERNIGHT SHIFT THIS AM, PATIENT IN ROOM QUIET. PATIENT CAME TO DAY ROOM FOR BREAKFAST TOOK MEDICATION WITHOUT INCIDENCE. PATIENT ALERT AND ORIENTED TIMES 4 PATIENT DENIES SI/HI/AH/VH AT PRESENT. PATIENT ACTS CONFUSED AT TIMES AND WAS ASKING WHY SHE IS ON A CARB CONTROL DIET. SHE STATES THAT SHE HAS DM2 AND WANTS TO PICK HER OWN FOOD; I TOLD PATIENT THAT DIETARY KNOWS SHE HAS CARB CONTROL DIET AND THEY SEND THE APPROPRIATE FOOD TRAYS FOR HER. PATIENTS ABDOMEN SOFT BOWEL SOUNDS PRESENT LUNGS. PATIENT HAS NOT DISPLAYED ANY BEHAVIORS SHE HAS BEEN PARTICIPATING IN GROUPS. I HAVE TO REMIND PATIENT THAT SHE HAS ROOM LOCK OUT ORDERS BECAUSE SHE LIKES TO BE IN ROOM AND EXPLAINED IT IS FOR SAFETY REASONS. WILL CONTINUE TO MONITOR PATIENT FOR SAFETY AND BEHAVIORS.
--- NOTE | 2020-05-24 14:32 | NUR ---
LINCOLN received a call from Shaila who explained the outcome. She said Vamsi is on both pt's financial and healthcare dpoa, but is not listed as first. LINCOLN confirmed that both Shaila then Joe are decision makers before Vamsi. LINCOLN told Shaila the hospital will proceed as is. Shaila asked LINCOLN to email both statements from physicians enacted pt's dpoa to [email or web address] (her), and to their sports attorney Lizzy Goss at [email or web address]. LINCOLN provided an update to Dr. Mcnamara that pt is in need of 2 statements. She said she will finish hers and contact the hospitalist to do the same. SW team will continue to follow pt during her stay on this unit.
[2020-05-24 20:04] VITALS: BP 117/68
--- NOTE | 2020-05-25 03:58 | NUR ---
ASSUMED P T'S CARE BEGINNING OF THIS PM SHIFT. PT WAS IN THE DAYROOM AT TIME OF ASSESSMENT. PT DOES HAVE ANXIETY. WAS COOPERATIVE WITH ASSESSMENT. ONLY TOOK PEPSID. DECLINED STOOL SOFTER AND FIBER, VOICING THAT SHE "DID'NT NEED THEM" SHE WAS HAVING BM. PT SAT IN THE DAYROOM WENT TO SLEEP AT ABOUT 2200. PT CONTINUES TO REST IN HER ROOM. WILL CONTINUE TO MONITOR.
--- NOTE | 2020-05-25 13:14 | NUR ---
ASSUMED CARE AT 0700 TODAY. PT. UP AND MOVING ABOUT THE UNIT. SHE IS ON THE UNIT CURRENTLY SITTING QUIETLY. SHE SEEMS MORE CONFUSED TODAY THAN BEFORE TODAY. SHE IS NOT EATING WELL TODAY, APPROXIMATELY 20 OF BREAKFAST AND FOR LUNCH. SHE IS DENYING SI/HI/AVH AT THIS TIME. HER AFFECT IS VERY FLAT THIS DAY. SHE TOOK HER MORNING MEDICATIONS WITHOUT PROBLEMS NOTED. SHE REMAINS ON ROOM LOCK OUT FOR MEALS AND GROUPS SHE WAS NOT ATTENDING GROUPS. SHE IS ALERT AND ORIENTED TIMES 2 TO 3.
[2020-05-25 13:54] VITALS: BP 112/57
--- NOTE | 2020-05-25 16:17 | NUR ---
SW met with pt to assess depression and SI. Pt reported being sad about losing her independence. Pt stated she is not happy and does not want to go to a half-way, but understands she may have to. SW and pt discussed positivity for the future. Pt reported she would like to be happy and feels she will when she knows more about what will happen to her. SW will meet with patient tomorrow to follow up on feelings. Pt reported she did not have any SW needs at the time.
[2020-05-25 19:39] VITALS: BP 110/62
--- NOTE | 2020-05-26 04:18 | NUR ---
RECIEVED CARE OF THIS PATIENT AT 1900. PATIENT ALERT AND ORIENTED TO PERSON, PLACE AND SITUATION. THINKS PEOPLE ARE OUT TO GET HER, TO TAKE HER STUFF FROM HER. SHE HAD LONG PHONE CALL WITH SISTER. THEN SHE BECAME VERY TEARFUL AND WAS HAVING A CONVERSATION WITH SOMEONE NOT HERE. SAID THINGS LIKE "WHY DO YOU DO THIS TO ME?" AND "WHY DON'T YOU LIKE ME?" ALSO WAS REPEATING HERSELF WHILE HAVING THIS CONVERSATION. OFFERED HER A MED TO HELP HER RELAX BUT SHE REFUSED BECAUSE IT MIGHT MAKE HER BLIND. THEN PATIENT STARTED TO HIT HERSELF. ORDER OBTAINED FOR A MED BUT PATIENT WAS ASLEEP BEFORE IT COULD BE GIVEN. SLEPT MOST OF NIGHT.
[2020-05-26 09:53] VITALS: BP 115/67
[2020-05-26 09:57] VITALS: BP 120/70
--- NOTE | 2020-05-26 11:40 | NUR ---
1100 RESUMMED CARE FROM OVERNIGHT SHIFT THIS AM, PATIENT IN ROOM QUIET. WE GOT PATIENT UP TO EAT BREAKFAST SHE TOOK MEDICATION WITHOUT INCIDENCE. PATIENT AFTER BREAKFAST PATIENT WAS ACTING CATATONIC AGAIN I DID A STERNUM RUB SHE DID JUMP IN CHAIR. I TOLD PATIENT TO STOP ACTING AND GET HERSELF TOGETHER. PATIENT DENIES SI/HI/AH/VH AT PRESENT SHE IS ORIENT TIMES 4 PATIENTS AFFECT FLAT AND SHE IS NOT INTERACTIVE AT PRESENT. PATIENTS ABDOMEN SOFT BOWEL SOUNDS PRESENT LUNGS CLEAR. WILL CONTINUE TO MONITOR PATIENT FOR SAFETY AND BEHAVIORS.
[2020-05-26 18:05] VITALS: BP 131/72
--- NOTE | 2020-05-27 00:35 | NUR ---
Assumed care on 05/26/20 @ 1900, seated in day room, cooperated with assessment, toileted self, noted to have diarrhea bowel movement. Patient reports second loose stool earlier today. Senna held. Patient's discussion about how she ate less to try and have less diarrhea indicated poor understanding of cause and effect. Denies SI, HI reports depression and anxiety. HRRR, Lungs CTA, ABD sounds [id number]. Uses a walker to ambulate. Retired after [employer] meds, and is sleeping at this writing. Will continue to monitor for patient safety and comfort.
[2020-05-27 04:46] VITALS: BP 131/72
[2020-05-27 07:29] LABS: HEMATOCRIT 37.5 % (37.0-47.0); HEMOGLOBIN 12.3 gm/dL (12.0-15.0); MCH 31.1 pg (26.0-34.0); MCHC 32.7 g/dL (28.0-37.0); MCV 95.1 fL (80.0-100.0); RBC 3.94 mil/uL (4.20-5.00)
[2020-05-27 07:52] LABS: ALBUMIN 3.2 g/dL (3.4-5.0); CALCIUM 8.8 mg/dL (8.5-10.1); CREATININE 0.8 mg/dL (0.6-1.0); POTASSIUM 4.3 mmol/L (3.5-5.1); TOTAL BILIRUBIN 0.4 mg/dL (0.2-1.0); TOTAL PROTEIN 6.4 g/dL (6.4-8.2)
[2020-05-27 08:40] VITALS: BP 121/82
--- NOTE | 2020-05-27 10:29 | NUR ---
PT STILL SLEEPING SINCE THIS AM. PT REFUSED TO EAT BREAKFAST. WILL ASSESS TO SEE WHAT MEDS SHE HAD LAST NIGHT TO SEE IF THAT WAS A FACTOR IN BEING SLEEPY.
[2020-05-27 10:46] VITALS: BP 121/82
--- NOTE | 2020-05-27 11:00 | NUR ---
PT WAS WALKED INTO DINNING ROOM WITH SWAGING MACHINE ADJUSTER. PT WAS WALKING WITH STAND-BY ASSIST WITH WALKER.
--- NOTE | 2020-05-27 13:30 | NUR ---
SAT WITH PT IN DINING ROOM AND SHE DID SPEAK WITH THIS COMEDIAN A FEW WORDS, SHE HAS HER EYES OPENED A LITTLE. PT DIDN'T EAT LUNCH.
--- NOTE | 2020-05-27 13:56 | NUR ---
RT Progress Note- Sidra continues to show variable participation in the milieu and recreation therapy. She has displayed catatonic like behaviors on the unit and when in groups, tends to exhibit attention seeking behaviors such as talking over other patients, speaking very loudly, or not responding at all. She often states that she feels she has nothing to live for and would like for her life to end. Patient has been placed on room lockout for safety d/t suicidal statements. When staff try to engage 1;1 with patient she does not respond well. FANCY PACKER will encourage further participation in the milieu and groups.
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
--- NOTE | 2020-05-27 16:16 | NUR ---
PT AWAKE NOW AND TALKING WITH PEER. PT STATED SHE DIDN'T GET ALOT OF SLEEP, BUT SOME IS BETTER. PT TOOK MEDICATION WHOLE, ASKING ABOUT TEGRETOL MEDICATION. TOLD HER IT IS FOR HER MOOD. PT ASKED IF SHE CAN CHEW IT. THIS EMERGENCY MANAGER SAID YES. SHE TOOK THAT AND VIT D.
--- NOTE | 2020-05-27 17:30 | NUR ---
PT DID EAT OVER 50% OF DINNER. PT DIDN'T WANT ENSURE SHAKE OR MILK.
[2020-05-27 19:50] VITALS: BP 106/69
--- NOTE | 2020-05-28 04:38 | NUR ---
Assumed care for pt at 1900. Pt sitting in dining room at start of shift w/peer. Pt is pleasant and calm. Pt cooperative and complaint with nursing assessment and medications. Pt reports feeling depressed that she feels the medications are not helping and making things better. Explained to pt that sometimes the medications take a while to work, as some of the medications you have to build up in your system. Pt receptive to discussion, and states I hope. Pt has rested in bed throughout night with eyes closed and appears to have been sleeping. Pt is on 12 min checks for safety. Will continue to moniutor for changes in mood and behavior/safety per unit/hosptial protocol and policy.
[2020-05-28 08:46] VITALS: BP 97/49
--- NOTE | 2020-05-28 11:53 | NUR ---
SW checked in with pt. She said she's a little down because of the meds, but overall she feels ok. SW told pt that she reviewed her documentation and saw that she is doing better about the statements she makes. SW told pt that if she continues to have a good day then she will talk with Dr. Mcnamara tomorrow morning about removing her room lockout. Pt said ok. SW asked if she was able to eat more and pt responded that she really is trying. The MEAT PROCESSING CENTER MANAGER on duty confirmed that pt has been doing better with her eating. Overall, pt appeared to SW much calmer and was patiently awaiting her lunch at the table while reading a magazine. SW team will continue to follow pt during her stay on this unit.
[2020-05-28 15:20] VITALS: BP 108/60
[2020-05-28 15:24] VITALS: BP 112/63
[2020-05-28 15:28] VITALS: BP 111/59
--- NOTE | 2020-05-28 18:54 | NUR ---
Alert and orientated to name and place. Denies SI/HI. States she feels better than yesterday but still doesn't think medication is working. Also reported in mid afternoon that she was feeling dizzy when she sat up. Orthostatics done. Dr. Mcnamara aware, no new orders. Breath sounds clear. Reg HR auscultated. Color pink with brisk capillary refill and palpable peripheral pulses. Independent with voiding. Active bowel sounds over soft, rounded abdomen. Up ambulating with walker with slow, steady gait. Currently sitting in day room with peers.
[2020-05-28 20:13] VITALS: BP 98/61
--- NOTE | 2020-05-29 07:48 | NUR ---
PROGRESS PT ALERT AND COOPERATIVE WITH ASSESSMENT TOOK MEDICATIONS WITH OUT DIFFICULTY. UP AD NADEEN SLEPT THE WHOLE SHIFT VSS.
[2020-05-29 10:23] VITALS: BP 100/73
--- NOTE | 2020-05-29 12:01 | NUR ---
SW team had a 1-to-1 with pt in which they explained she has been doing very well. SW team explained to her that her room lock out has been reduced to only meals and group times. SW team will continue to follow pt during her stay on this unit.
--- NOTE | 2020-05-29 14:54 | EEG ---
[facility] [place] [address] ELECTROENCEPHALOGRAM Name: MARTA WARREN Room #: 520A-A ADM IN M.R.#: [id number] Admission: 05/13/20 Attend Phys: Yenifer Mcnamara MD Discharge: Date of : 42 Report #: [id number] THIS REPORT FOR: //name// DATE OF SERVICE: 05/16/2020 This patient is being evaluated for the possibility of seizure. EEG was done by placing the electrode by standard 10-20 system of electrode placement. Both referential and sequential montages were used for recording. Background activity is about 8-9 Hz and 30 microvolt. It is intermixed with some theta range slowing on both sides. Photic stimulation is unremarkable. No active epileptiform activity was noticed. IMPRESSION: This patient's EEG does not demonstrate any active epileptiform activity. EEG is intermixed with mild theta range slowing, which is a nonspecific finding, which can occur with drowsiness, effect of psychotropic medication, etc. No active epileptiform activity was noticed. It might be mentioned that EEG can be normal in a patient with a seizure disorder and therefore, clinical correlation is recommended. <ELECTRONICALLY SIGNED> By: Rashawn Kennedy MD 05/29/20 [id number] Rashawn Kennedy MD /nt
--- NOTE | 2020-05-29 15:15 | NUR ---
PATIENT IS ALERT, AND ORIENTED X2-3 ABLE TO VOICE NEED, CAN BE FORGETFUL AT TIMES. SHE AMBULATES WITH ASSIST OF ROLLER WALKER, GAIT SLIGHTLY UNSTEADY. PATIENT IS ABLE TO FEED SELF, EATING MEALS, AND DRINKING FLUID FAIRLY WELL. PATIENT TOOK MORNING MEDICATION EXCEPT FOR STOOL SOFTER. SHE HAD LARGE SOFT BOWEL MOVEMENT THIS MORNING. PATIENT DENIES SUICIDAL/HOMICIDAL IDEATION, SHE RATES BOTH DEPRESSION/ANXIETY 9/10. PATIENT DENIES AUDITORY/VISUAL HALLUCINATION. AFFECT IS FLAT/BLUNTED, MOOD IS DEPRESSED. PATIENT DENIES HAVING PHYSICAL PAIN, NO SIGN OF ACUTE DISTRESS NOTED, WILL MONITOR FOR SAFETY.
[2020-05-29 19:38] VITALS: BP 99/65
--- NOTE | 2020-05-30 05:09 | NUR ---
Assumed care for pt at 1900. Pt up in dining room at start of shift sitting with peer. Pt cooperative and pleasant with nursing assessment. Pt medication compliant and takes medications whole. Pt did refuse colace and benefiber stating she is have soft stools and does not want. Pt A&O x 2. Pt is worried about going home and what will happen to her and where she will live. Afraid she will lose everything. Pt denied pain at time of assessment. At 0000 pt reported having a headache and rating it 7/10. Pt requesting Tylenol. TARA Uribe motor and controls tester notified and orders received for Tylenol 650 mg q4h for pain. Pt reports she is not allergic to Tylenol when asked to clarify allergy. PRN effective. Pt has been sleeping and has voiced no further complaints. Pt denies SI. Pt presents with flat affect and depressed mood and appears to be anxious especially when discussing discharge. Pt is on 12 minute checks for safety. Will continue to monitor for changes in mood/behaviors and for safety per hospital/unit protocol.
[2020-05-30 09:44] VITALS: BP 115/69
--- NOTE | 2020-05-30 13:35 | NUR ---
Alert and orientated to person and place. Concerned about payment for hospital--states she should be in hospital in [place] instead of [place]. Denies SI/HI. Flat affect. Ambulating without difficulty with walker, steady gait. Breath sounds clear. Reg HR auscultated. Color pink with brisk capillary refill and palpable peripheral pulses. Yellow urine per toilet. Active bowel sounds over soft, flat abdomen. Reports BM yesterday. Attending groups. Agreed to take shower but then wanted to take it this afternoon after groups.
[2020-05-30 19:30] VITALS: BP 123/62
--- NOTE | 2020-05-31 04:11 | NUR ---
Assumed care of pt at 1900. Pt in dining room during earlier part of evening. Pt is A&O x 2-3. Pt presents with flat affect. Pt mood is depressed/anxious. Pt denies SI. Pt denies any pain. Pt is compliant with nursing assessments and takes medications whole with thin liquids. Pt refused HS Docusate and benefiber, and has small, soft formed BM this shift. Pt is on 12 min checks for safety. Will continue to monitor for any changes in mood/behaviors and safety per hospital/unit protocol.
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
[2020-05-31 09:48] VITALS: BP 110/71
--- NOTE | 2020-05-31 13:48 | NUR ---
LINCOLN sent referrals for pt to the following: [facility] LINCOLN provided an update to Shaila concerning pt. Shaila asked that LINCOLN also look for placement near her in [place] [address]. LINCOLN team will continue to follow pt during her stay on this unit.
--- NOTE | 2020-05-31 16:19 | NUR ---
Assumed pt care at 0700. pt was in the day room awake. pt was alert and oriented to person and place. pt was co-operative with care. pt denIes SI/HI, PT DENIES PAIN. PT AMBULATES WITH A W/C. PT TOOKS MEDS WHOLE WITHOUT DIFFICULTIES. PT WAS ANXIOUS AND HAD MOMENTS WHEN SHE CRIED. PT ATE ALL MEALS, PT HAD DIARRHEA TWICE THIS SHIFT. PT VITAL SIGNS IS STABLE. THERE IS NO SIGN OF DISTRESS NOTED DURING ASSESSMENT. WILL CONTINUE TO MONITOR PT.
[2020-05-31 19:45] VITALS: BP 108/69
--- NOTE | 2020-06-01 04:17 | NUR ---
Assumed pt's care beginning of this pm shift. Alert and oriented. Cooperative with care. Was in the dayroom at time of assessment. Took meds per emar. Did decline stool softner and fiber. Pt's sister called and spoke with p t this shift. Pt slept well this shift. Ambulates with walker. Fall precaution in place. Will continue to monitor.
[2020-06-01 07:47] VITALS: BP 118/62
--- NOTE | 2020-06-01 09:52 | NUR ---
LINCOLN received voice message from Maria Ines from [facility] [phone] or [phone] regarding patient. LINCOLN returned her call but she was not in the office this date. LINCOLN left message asking for a return call. LINCOLN team will continue to follow.
--- NOTE | 2020-06-01 09:58 | NUR ---
LINCOLN received a message from [facility] stating they are interested in accepting patient but will complete a review on Wednesday to make a final decision. SW team will follow up and cointinue to monitor patient throughout this hospitalization.
--- NOTE | 2020-06-01 10:42 | NUR ---
Alert and orientated to name and place. Denies SI/HI. Resistant to getting out of bed this AM but did come to breakfast with encouragement. Flat affect, took only 2 Sennas d/t frequent stools. Also stating she doesn't think Tegretol is doing much good. Compliant and calm. Ambulating with reg, steady gait with walker. Breath sounds clear. Reg HR auscultated. Color pink with brisk capillary refill and palpable peripheral pulses. No edema noted. Independent with voiding. Active bowel sounds over soft, flat abdomen. Currently sitting in day room with peers, no s/o distress.
--- NOTE | 2020-06-01 11:19 | NUR ---
PT HAS BEEN OPEN TO ENGAGE WITH PEERS AND STAFF MEMBERS. PT HAS PROVIDED GREAT ATTENDANCE WHEN ATTENDING RECREATION THERAPY GROUPS. IT IS ENCOURAGED BY THE RECREATION THERAPIST THAT SHE WILL CONTINUE TO IMPROVE COPING SKILLS AND SELF ESTEEM TO REDUCE ANY FUTURE STRESSORS.
[2020-06-01 13:13] VITALS: BP 108/72
--- NOTE | 2020-06-01 14:59 | NUR ---
LINCOLN met with patient 1:1. She expressed feelings of frustration with her mood swings. She also discussed her fears regarding what will happen to her afte she is discharged. She discussed her lack of acceptance of needing to sell her home and "get rid of her things." SW provided support. SW team will continue to monitor.
[2020-06-01 18:23] VITALS: BP 129/73
--- NOTE | 2020-06-02 03:10 | NUR ---
ASSESSMENT: PT REMAIN ALERT AND ORIENT TIMES THREE. SETTING IN THE DAY AREA UNTIL TIME FOR BED. PT REFUSED TO TAKE PSYLLIUM AND ONLY WANTED 1/2 DOSE OF THE SENNA. PT IS GETTING EXCITED ABOUT POSSIBLE DC SOON. BLOOD SUGAR WAS 131. VSS, AFEBRILE. NO CATATONIC STATE THIS SHIFT. NO SYNCAPAL EPISODES NONTED. SLEPT WELL DURING THE NIGHT. WILL CONTINUE TO MONITOR.
[2020-06-02 09:49] VITALS: BP 111/68
--- NOTE | 2020-06-02 10:27 | NUR ---
1025 RESUMMED CARE FROM OVERNIGHT SHIFT THIS AM, PATIENT IN ROM QUIET. PATIENT ATE BREAKFAST TOOK MEDICATION WITHOUT INCIDENCE. PATIENT ALERT AND ORIENTED TIMES 3 PATIENT DENIES SI/HI/AH/VH AT PRESENT. PATIENTS ABDOMEN SOFT BOWEL SOUNDS PRESENT LUNGS CLEAR. PATIENT QUIET AFFECT FLAT PATIENT WANTS TO LEAVE AND GO TO HER NEXT PLACEMENT. WILL CONTINUE TO MONITOR PATIENT FOR SAFETY AND BEHAVIORS.
--- NOTE | 2020-06-02 13:53 | NUR ---
SW met with patient 1:1 in lieu of group d/t COVID 19 restrictions. Patient was engaged and discussed concerns about her friend who lives in her home having someone else there while she is in the hospital. SW provided support. SW team will continue to monitor.
[2020-06-02 19:54] VITALS: BP 123/75
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
[2020-06-03 09:21] VITALS: BP 110/69
[2020-06-03 09:23] VITALS: BP 110/69
--- NOTE | 2020-06-03 10:53 | NUR ---
LINCOLN sent referrals for pt to the following places: [facility] [employer] [facility] [employer] [facility] LINCOLN team will continue to follow pt during her stay on this unit.
--- NOTE | 2020-06-03 12:54 | NUR ---
1250 RESUMMED CARE FROM OVERNIGHT SHIFT THIS AM, PATIENT IN DAY ROOM LOOKING OUT OF WINDOW AT THE SNOW. PATIENT ATE BREAKFAST TOOK MEDICATION WITHOUT INCIDENCE. PATIENT ALERT AND ORIENTED TIMES 4 SHE DENIES SI/HI/AH/VH AT PRESENT. PATIENTS ABDOMEN SOFT BOWEL SOUNDS PRESENT LUNGS CLEAR PATIENTS SENNA DECREASED. PATIENT PARTICPATES IN GROUPS AND IS CALM COOPERATIVE PATIENT HAD COVID TEST DONE TODAY. WILL CONTINUE TO MONITOR PATIENT FOR SAFETY AND BEHAVIORS.
[2020-06-03 20:07] VITALS: BP 111/69
[2020-06-03 21:00] VITALS: BP 111/69
--- NOTE | 2020-06-04 04:33 | NUR ---
PATIENT SAT UP IN DINING ROOM UNTIL SHE WENT TO HER ROOM AROUND 2100. SHE WAS VERY TALKATIVE TONIGHT AND IS WORRIED ABOUT GOING TO ASSISTED LIVING. SHE IS WANTING TO FIND PEOPLE TO COME STAY WITH HER IN HER HOME AND DOES NOT FEEL SHE IS AT A LEVEL THAT SHE NEEDS AL AT THIS TIME. SHE IS WORRIED ABOUT HER BILLS AND HER BELONGINGS AND STUFF SHE NEEDS TO GO THRU. ENCOURAGED HER BY LETTING HER KNOW THAT THE SW WILL HELP HER TO ADDRESS THESE THINGS BEFORE SHE GOES. SHE WANTS TO HAVE MORE INPUT IN DECISIONS SHE STATES. PATIENT DENIES PAIN. DENIES SI/HI/AVH. VSS. LEFT LEG HAS TRACE OF EDEMA TONIGHT. PATIENT IS INDEPENDENT WITH CARES. SHE USES WALKER TO AMBULATE. PATIENT APPEARS TO BE SLEEPING WITH EYES CLOSED AT THIS TIME. BED IN LOW POSITION AND BED ALARM IS ON. ROUTINE ROUNDS TO ASSESS SAFETY AND STATUS OF PATIENT.
[2020-06-04 08:30] VITALS: BP 113/71
--- NOTE | 2020-06-04 08:49 | NUR ---
PT SITTING IN DINING ROOM EATING BREAKFAST. PT LUNGS CLEAR. PT TOOK MEDS WITHOUT ANY ISSUES. PT SEEMS WITHDRAWN THIS AM. PT LUNGS CLEAR. PT USES WALKER TO ASSIST WITH AMBULATING.
[2020-06-04 08:54] VITALS: BP 113/71
--- NOTE | 2020-06-04 15:23 | NUR ---
SW received a call from Eulalio with [facility] who said that he would like to accept pt, but she has to have a PCP in [facility] so he is waiting on an answer on if the PCP they work with can accept pt. LINCOLN will continue to follow pt during her stay on this unit.
--- NOTE | 2020-06-04 16:31 | NUR ---
PT SITTING OFF AT FAR END OF ROOM AFTER GROUP. PT NOT VERY SOCIAL WITH ANY OTHER PEERS. PT STAYS TO SELF. NO COMPLAINTS FROM PT AND NO SIGNS OF KONRAD OR SOMULANCE.
[2020-06-04 19:25] VITALS: BP 115/77
[2020-06-04 20:30] VITALS: BP 115/77
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
--- NOTE | 2020-06-05 08:25 | NUR ---
PT CALM THIS AM AND WITHDRAWN. PT USES WALKER FAITHFULLY WITH STEADY GAIT. PT LUNGS CLEAR. PT DENIES ANY PAIN. PT STAYS TO HERSELF AND DOENS'T CONVERSE WITH OTHER PEERS. PT DOES TALK TO STAFF.
[2020-06-05 08:40] VITALS: BP 102/63
[2020-06-05 09:32] VITALS: BP 102/63
--- NOTE | 2020-06-05 12:19 | NUR ---
LINCOLN received a call from Heather from [facility] in [place] to receive more info about pt. LINCOLN gave her the info she requested. Heather said she would like to do a virtual call for pt at 1400. SW team will continue to follow pt during her stay on this unit.
--- NOTE | 2020-06-05 18:30 | NUR ---
PT HAD A CONFERANCE CALL TODAY WITH [employer]. PT RECIEVED A CALL FROM SIL[place] TODAY AND SHE STATED SHE DIDN'T KNOW WHO HE WAS. THIS WORRIED HIM THAT SHE DIDN'T RECOGNIZE HIS VOICE. HE STATED HE WILL CALL BACK TOMMORROW.
[2020-06-05 19:52] VITALS: BP 117/71
--- NOTE | 2020-06-06 03:27 | NUR ---
ASSESSMENT DOCUMENTED.PT A/OX3,CALM ADN CO-OPERATIVE.VSS.PT BEEN SLEEPING THROUGH THE NOC IN NO ACUTE DISTRESS.PT WAS CONCERNED OF THE MEDICATIONS THAT SHE IS TAKING,EDUCATED ON ALL THE MEDICATION TAKEN AND WHY SHE NEEDS THEM.VOICED UNDERSTANDING AND INAGREEMENT WITH THE MEDS PLAN.TOOK HER MEDS W/O PROBLEMS.HS SNACK PROVIDED.PT DENIES ANY CONCERNS.POC IS TO CONTINUE WITH THE CURRENT POC,MEDS AND MONITOR PT PROGRESS.SEE OTHER DOCUEMTED INTERVENTIONS.
[2020-06-06 09:15] VITALS: BP 116/63
--- NOTE | 2020-06-06 12:40 | NUR ---
LINCOLN contacted Heather with [facility] at [phone] to follow-up on pt's assessment from yesterday. No answer. [facility] LINCOLN contacted [facility] and spoke with Eduin. He said that he attempted to contact Shaila but has yet to receive a call back. LINCOLN team will continue to follow pt during her stay on this unit.
--- NOTE | 2020-06-06 13:07 | NUR ---
HAS BEEN VISIBLE IN DAYROOM SITTING QUIETLY DURING UNSTRUCTURED TIME-DYSPHORIC MOOD-INITALLY DURING AM ASSESSMENT 1;1 WITH THIS NURSE RESPONSES ARE ABRUPT/POOR EYE CONTACT-DID APPEAR SLIGHTLY LESS ABRUPT/GUARDED AFTER CONVERSING WITH THIS NURSE FOR ABOUT 10 MINUTES-DENIES PAIN. DENIES S/SH BUT CONTINUES TO MAKE HOPELESS HELPLESS STATEMENTS I.E "I DON'T HAVE ANYTHING ANYMORE NOT EVEN A HOME-ITS ALL BEEN TAKEM AWAY FROM ME" GAIT IS STEADY WITHOUT ASSISTIVE DEVICES-DENIES DIZZINESS UPON ARISING. APPETITE FAIT-DOES TAKE FLUIDS WELL
[2020-06-06 19:24] VITALS: BP 140/77
[2020-06-06 20:10] VITALS: BP 140/77
--- NOTE | 2020-06-07 01:14 | NUR ---
PATIENT IS A/0X4 BUT FORGETFUL AT TIMES. SHE AMBULATES STEADILY WITH A WALKER. TONIGHT SHE HAS BEEN OBSESSED ABOUT HAVING A BM AND DID NOT WANT DIARHEA. SHE TOOK HER STOOL SOFTNERS AND FIBER WITH HS MEDS WHOLE WITH WATER. SHE DID HAVE A MEDIUM LIGHT BROWN FORMED STOOL. SHE WENT TO BED AND AWOKE A COUPLE HOURS LATER TO USE THE RESTROOM AND C/O OF ITCHING ALL OVER. FEW RED RAISED AREAS ON HIPS AND ARMS. PT GIVEN PRN BENADRYL 25MG FOR RELIEF. SHE SPOKE WITH THIS NURSE 1:1 ABOUT HER ANXIETIES OF WHERE SHE IS GOING TO END UP LIVING AND CONCERNS ABOUT LOSING ALL HER BELONGINGS. SHE WAS ANXIOUS AND UNABLE TO TURN OFF HER THOUGHTS. AGREED TO SPEAK WITH ADRIENNE STARK ABOUT WHERE THEY HAVE DECIDED FOR HER TO LIVE TOMORROW. PT BACK TO SLEEP. BED IN LOW POSITION AND BED ALARM IS ON. PATIENT'S LIVE IN MALE FRIEND IS ONLY TO SPEAK WITH THE ADRIENNE HERCULES BOARD SETTER ABOUT PATIENT. PATIENT BECOMES VERY UPSET WHEN SHE TALKS TO ERNESTO. ROUTINE ROUNDS TO ASSESS SAFETY AND STATUS OF PATIENT.
[2020-06-07 07:53] VITALS: BP 111/71
[2020-06-07 08:59] VITALS: BP 111/71
--- NOTE | 2020-06-07 10:42 | NUR ---
1030 RESUMMED CARE FROM OVERNIGHT SHIFT THIS AM, PATIENT IN DAY ROOM QUIET. PATIENT ATE BREAKFAST TOOK MEDICATION WITHOUT INCIDENCE. PATIENT DENIES SI/HI/AH/VH AT PRESENT, PATIENT ALERT ORIENTED TIMES 4. PATIENT STATED TO ME SHE THINKS SHE WORRIES ABOUT THINGS SHE CANNOT CONTROL. PATIENT IS CALM LESS ANXIOUS PARTICIPATES IN GROUPS. PATIENTS ABDOMEN SOFT BOWEL SOUNDS PRESENT PATIENTS LUNGS CLEAR. PATIENT WANTS TO TALK WITH MORTGAGE CLOSING CLERK ABOUT HER NEXT PLACEMENT. PATIENTS ROOM MATE CALLS TO ASK ABOUT PATIENTS STATUS, WE ARE NOT TO TALK WITH ROOMMATE TRANSFER CALLS TO BALA HER MORTGAGE CLOSING CLERK. WILL CONTINUE TO MONITOR PATIENT FOR SAFETY AND BEHAVIORS.
--- NOTE | 2020-06-07 15:05 | NUR ---
LINCOLN received a msg from Romero with [facility] asking for 2 weeks worth of notes. LINCOLN faxed notes. LINCOLN received a call from Heather with [facility] stating they want to accept pt and have called Shaila, but have not heard from her yet. They are also waiting on Joe to do a tour. LINCOLN contacted Shaila. No answer. LINCOLN left a msg. LINCOLN mailed the 2 statements from doctors enacting pt's DPOA. LINCOLN contacted Heather again 2 hours after her initial phone call to inquire if Shaila has called her yet. She said no. However, she said Joe is due to tour the facility at approx. 1530 today. LINCOLN team will continue to follow pt during her stay on this unit.
[2020-06-07 19:59] VITALS: BP 98/69
--- NOTE | 2020-06-08 04:37 | NUR ---
Pt. did rest quietly during the night when checked on during frequent rounds. She has been cooperative with cares.
[2020-06-08 08:13] VITALS: BP 109/65
[2020-06-08 09:37] VITALS: BP 109/65
--- NOTE | 2020-06-08 15:37 | NUR ---
PATIENT WAS IN BED ASLEEP WHEN CARE ASSUMED. SHE GOT UP FOR BREAKFAST, AMBULATE WITH ASSIST OF ROLLER WALKER. PATIENT IS ALERT, AND ORIENTED X3-4 ABLE TO VOICE NEED. PATIENT TOOK MORNING MEDICATIOS WHOLE WITHOUT DIFFICULTY, SHE IS EATING MEALS, AND DRINKING FLUID WELL. PATIENT DENIES SUICIDAL/HOMICIDAL IDEATION, SHE ACKNOWLEDGES DEPRESSION/ANXIETY, "AM VERY DEPRESSED GIVEN EVERYTHING THAT IS GOING ON IN MY LIFE". PATIENT ENCOURAGED TO COME TO STAFF WITH ANY CONCERN. PATIENT DENIES HAVING PHYSICAL PAIN. PATIENT REPORTS LAST BOWEL MOVEMENT WAS ON 06/07/20. MOOD IS DEPRESSED, AFFECT IS FLAT/BLUNTED. NO SIGN OF ACUTE DISTRESS NOTED AT THIS THIS TIME, WILL MONITOR FOR SAFETY.
--- NOTE | 2020-06-08 16:32 | NUR ---
SW met with patient to discuss her transitioning into a facility and not returning home. Patient reported she is willing to observe the place, but is not sure she will like it much. Patient reported her sister lives in [place] and wants her to be near her. Patient discussed losing her independence and how it makes her feel. SW assured patient that she will be safe and at anytime she doesn't feel safe she can report her feelings to the staff available. Patient reported an understanding.
[2020-06-08 19:32] VITALS: BP 107/72
--- NOTE | 2020-06-09 03:38 | NUR ---
UPON INITIAL ASSESSMENT THIS PM SITTING IN DAYROOM BY SELF TEARFUL AND TALKING QUIETLY TO SELF "I MAY WELL BE -JUST GO TO SLEEP AND NOT WAKE UP" HOPELESS,HELPLESS BUT DENIES SI/SH. DENIES PAIN STATING "NOT PHYSICAL AT LEAST" TALKED WITH SISTER ADELITA ON PHONE AND DID APPEAR SLIGHTLY BRIGHTER AFTER THIS CONVERSATION. REQUESTED AND RECEIVED BENADRYL 25MGPO PRN FOR "ITCHING ALL OVER" AT APPROX 2200-AT THIS TIME LYING IN BED,ANXIOUS FACIAL EXPRESSION AND NOTED RAPID SPEECH-TALKING AT LENGTH ABOUT WHERE SHE WILL GO ON DC-RUMINATIVE AND FOCUSED ON WORSE CASE SCENERIO TYPE THINKING "I'M GOING TO RUN OUT OF MONEY AND GET KICKED OUT" "MY FAMILY WILL SELL ALL OF MY STUFF AND I WILL HAVE NOTHING" ETC... FEEDBACK PROVIDED RE HOW THIS DISTORTED THINKING INCREASES ANXIETY LEVEL AND DISTRESS -TO WHICH SHE STATES "I CAN'T CHANGE MY THINKING THIS IS HOW I ALWAYS THING"DENIES PAIN. GAIT STEADY WITH USE OF ROLLER WALKER. APPEARS TO BE RESTING QUIETLY BY APPROX [id number].
[2020-06-09 08:36] VITALS: BP 92/53
[2020-06-09 10:26] VITALS: BP 92/53
--- NOTE | 2020-06-09 14:05 | NUR ---
MAE CATES ASSUMED AT 0700 - SITTING IN [place]. APPROACHED AND INTRODUCED SAID FACILITY PRACTICE SPECIALIST. PATIENT PLEASANT AND AGREEABLE. STATED HAD GOOD NIGHT SLEEP. DENIES ANY S/I OR H/I. SPENT DAY IN [place]. OFFERED [employer] AND HAS BEEN READING IT MOST OF THE MORNING. ENGAGED WITH FELLOW PEER SHE BEFRIENDED AND CONVERSATION PURSUED. PATIENT COMPLIANT WITH MEDICATIONS. NO INTERNAL STIMULATION OBSERVED. NO PAIN WHEN ASSESSED - ATE 50 PERCENT OF HER MEALS. STILL SOME CONFUSION WITH HER MEDICATIONS ON WHEN SHE SHOULD BE TAKING THEM. BEHAVIOR CALM AND FOCUSED TODAY. WILL CONTINUE TO MONITOR PATIENT FOR SAFETY, CHANGES IN BEHAVIOR OR ANY CONCERNS AND ADDRESS ACCORDINGLY.
[2020-06-09 19:06] VITALS: BP 107/61
--- NOTE | 2020-06-10 04:20 | NUR ---
Assumed care for pt at 1900. Pt up in day room sitting in chair in corner of room. Pt sister called and she spoke with her for a little while. Pt then fell pack asleep. Pt is compliant with medications and takes them without diffuculty. Pt affect is flat. Pt reports anxiety regarding concerns with discharge. Talked to her sister this shift and per pt she was looking to discharge to someplace in [place], but sister has found place in [place], [place] that she is trying to get arranged for pt to discharge to. Pt is concerned she cannot have her things where ever she goes. Pt denied pain. Pt is on 12 min checks for safety. Will continue to monitor for changes in mood and behavior.
--- NOTE | 2020-06-10 06:32 | NUR ---
Pt c/o anxiety and itching all over stating she feels like she is going to 'jump out of her skin." Skin assessed and it does appear to be dry at this time. PRN bendadryl 25 mg administerd to pt for axiety pt is rating 7/10 will continue to monitor.
[2020-06-10 08:34] VITALS: BP 111/66
[2020-06-10 11:00] VITALS: BP 127/72
--- NOTE | 2020-06-10 11:08 | NUR ---
LINCOLN received a vm from Shaila stating that pt said she would like to go with another facility and would like LINCOLN to send a referral. LINCOLN returned Shaila's call and left a msg stating that there isn't time to start this process over with a new facility given that pt's behaviors no longer meet criteria to be on this unit. LINCOLN advised that Shaila is the DPOA and so must be the one to make the decision; there will most likely be no placement options that the pt is will be happy with. LINCOLN contacted Heather with [facility] who confirmed they have accepted pt, and they just need the signatures from her DPOA. LINCOLN contacted Shaila again and spoke with her. LINCOLN provided active listening to Shaila's concerns and advised her that if she does not like BD or believes they can no longer afford that placement pt can be moved. Shaila agreed and said she will finish signing documents. She asked that LINCOLN arranged discharge for Wed. [facility]N team will continue to follow pt during her stay on this unit.
--- NOTE | 2020-06-10 11:42 | NUR ---
RT Progress Note- Sidra continues to be active in the milieu and recreation therapy groups. She has been willingly present and not requiring enforcement of room lockout. Overall, Sidra has been positive but occasionally needs encouragement to change her thinking to positive thinking when she becomes fixated on discharge and outcomes of moving to a facility. Patient has enjoyed socializing with female patients on the unit as of late. [employer] will continue to encourage this level of participation.
--- NOTE | 2020-06-10 12:14 | NUR ---
1200 RESUMMED CARE FROM OVERNIGHT SHIFT THIS AM, PATIENT IN DAY ROOM SITTING AT TABLE TALKING WITH OTHER PATIENTS. PATIENT ALERT ORIENTED TIMES 3 PATIENT ANXIOUS ABOUT WHAT HER NEXT PLACEMENT LOOKS LIKE. PATIENT DENIES SI/HI/AH/VH AT PRESENT PATIENTS ABDOMNEN SOFT BOWEL SOUNDS PRESENT. PATIENTS LUNGS CLEAR PATIENT PARTICIPATED IN GROUPS AND IS VERY INTERACTIVE WITH OTHER PATIENTS. PATIENT HAS NOT DISPLAYED ANY BEHAVIORS THIS SHIFT WILL CONTINUE TO MONITOR PATIENT FOR SAFETY AND BEHAVIORS.
--- NOTE | 2020-06-10 12:35 | NUR ---
Followup: pt regaining lost wt, up another 1 lb for a total favorable gain of 11 lb. Eating >75% and drinking glucerna shakes. Change nutrition status to low risk
[2020-06-10 19:03] VITALS: BP 124/71
[2020-06-11 09:17] VITALS: BP 118/75
--- NOTE | 2020-06-11 09:51 | NUR ---
LINCOLN emailed via encrypted email to [facility]y Swenson the docs they needed filled out by nursing, and a copy of pt's negative covid test results from yesterday. SW team will continue to follow pt during her stay on this unit.
--- NOTE | 2020-06-11 10:16 | NUR ---
Alert and orientated to person, place and situation but not to time--thinks it is 2019. Hyperverbal this AM. Does not think she is ready for discharge and feels she is being pushed out the door. States she thinks other pts don't need as much help as she is being told and she is being neglected. Wants to see placement sites prior to discharged. Referred to LINCOLN and encouraged to write down questions. Spoke with Nelly STARK and she is aware of issues, will talk with her later today. Denies SI/HI. Breath sounds clear. Reg HR auscultated. Color pink with brisk capillary refill and palpable peripheral pulses. Slight amt edema in lower extremities. Active bowel sounds over soft, flat abdomen. Independent with voiding. Ambulates with walker with slow, steady gate. Participating in group this AM.
[2020-06-11] MEDS ORDERED: RISPERDAL 1 MG T1 MG PO (16:08)
[2020-06-11] MEDS ORDERED: CARBAMAZEPINE100 M3 PO ×3 (16:08)
[2020-06-11] MEDS ORDERED: PEPCID AC10 MG PO (16:08)
[2020-06-11 19:19] VITALS: BP 103/62
[2020-06-11 23:55] VITALS: BP 103/62
--- NOTE | 2020-06-12 04:16 | NUR ---
Assumed care on 06/11/20 @ 1900, seated in the day room socializing with peers. Sister, Shaila called and spoke to this nurse about discharge tomorrow, and the time of pickup. also spoke to patient and after pt seemed quite manic and repeating her worries and anxiety inducing worry regarding her living quarters, repeatedly 4-5 times in rapid succession. Coaching provided regarding focus for tonight is sleep so as to be well rested tomorrow for the move. Provided Tylenol 650 for General discomfort and Benedryl 25 for anxiety. Able to sleep and bed in low position with bed alarm set, will contiue to monitor as per unit protocol.
[2020-06-12] MEDS ORDERED: BENADRYL25 MG PO (08:41)
[2020-06-12] MEDS ORDERED: SENOKOT-S1 TA2 PO (08:42)
[2020-06-12 11:08] VITALS: BP 103/62
--- NOTE | 2020-06-12 11:46 | NUR ---
PATIENT CARE ASSUMED AT 0700 - FIXATED ON DISCHARGING. STATED READY TO LEAVE. COMPLIANT WITH MEDICATIONS AND APPETITE GOOD. AFFECT FLAT AND MOOD IRRITABLE - WITH REALIZATION NOT GOING HOME. DENIES S/I OR H/I - REMAINS DEPRESSED DUE TO INABILITY TO GO HOME. AMBULATORY - MAKES NEEDS KNOWN READLY. COVID TEST NEGATIVE - [facility] PREPARED FOR TRANSPORT.
--- NOTE | 2020-06-12 12:07 | NUR ---
LINCOLN D/C NOTE LIN[facility]N contacted Mindy to confirm discharge. [facility] team then faxed discharge docs to [phone]. SW will file docs along with pt's dpoa docs in her hospital file. No other needs for SW team to address at this time.
--- NOTE | 2020-06-12 13:50 | NUR ---
PATIENT DEPARTED AT 1340 WITH [facility]. [facility] AND PAPERWORK FOR FACILITY WITH PATIENT. ALERT AND AGREEABLE. DISCHARGED TO [facility] IN [place]. MORINING MEDICATIONS ADMINISTERED. -
== END 2020-06-12 13:53 | DRG 885 ==
LOC: SBH
PROVIDERS: Internal Medicine; ADMIT Psychiatry & Neurology Psychiatry; ATTEND Psychiatry & Neurology Psychiatry
DX: F31.9 Bipolar disorder, unspecified (principal); G93.40 Encephalopathy, unspecified; R45.851 Suicidal ideations; F20.2 Catatonic schizophrenia; Z96.653 Presence of artificial knee joint, bilateral; F41.9 Anxiety disorder, unspecified; F03.90 Unspecified dementia, unspecified severity, without behavioral disturbance, psychotic disturbance, mood disturbance, and anxiety; M19.90 Unspecified osteoarthritis, unspecified site; G89.29 Other chronic pain; K59.00 Constipation, unspecified; I10 Essential (primary) hypertension; Z20.822 Contact with and (suspected) exposure to COVID-19; D64.9 Anemia, unspecified; K21.9 Gastro-esophageal reflux disease without esophagitis; I95.9 Hypotension, unspecified; F64.9 Gender identity disorder, unspecified; Z79.899 Other long term (current) drug therapy; Z98.42 Cataract extraction status, left eye; Z98.41 Cataract extraction status, right eye; Z88.6 Allergy status to analgesic agent; Z88.1 Allergy status to other antibiotic agents; Z88.8 Allergy status to other drugs, medicaments and biological substances
CPT/HCPCS: 10880